=== PATIENT | female | born 1960 | race Caucasian/White ===

== ENCOUNTER 2017-09-26 16:59 | Inpatient (IN) ==
[2017-09-26] MEDS ORDERED: *HR* HYDROcodone/Acet 5/325 mg TABLET PO PRN (18:30)
[2017-09-26] MEDS ORDERED: *HR* Morphine 2 MG/ML SYRINGE IVP PRN (18:32)
[2017-09-26] MEDS ORDERED: Ondansetron 4 MG/2 ML VIAL IVP PRN (18:32)
[2017-09-26] MEDS ORDERED: Naloxone 0.4 MG/ML INJ IVP PRN (18:32)
[2017-09-26] MEDS ORDERED: Acetaminophen 325 MG TABLET PO PRN (18:32)
[2017-09-26] MEDS ORDERED: MOM Conc 10 ML UD.LIQ PO PRN (18:32)
[2017-09-26] MEDS ORDERED: Pantoprazole 80 MG in Water for inj. (sterile) 10 ML IVP ONE (18:36)
--- NOTE | 2017-09-26 18:41 | Internal Med History&Physical ---
Date of Encounter: 09/26/17 Time of Encounter: 18:39 Assessment and Plan (1) Anemia Current visit: Yes Status: Acute - Hgb dropped from 14.5 to 11.0. - symptoms consistent with acute GI bleeding. Qualifiers: Anemia type: unspecified type Qualified Code(s): D64.9 - Anemia, unspecified (2) Acute GI bleeding Current visit: Yes Status: Acute - most likely upper GI bleeding, - protonix 80 mg loading + gtt. - continue asa and Plavix. - GI consult. (3) CAD (coronary artery disease) Current visit: No Status: Chronic - Had stent placed in 09/2013. - No chest pain, continue home meds. Qualifiers: Coronary Disease-Associated Artery/Lesion type: [place] artery [place] vs. transplanted heart: [place] heart Associated angina: angina presence unspecified Qualified Code(s): I25.10 - Atherosclerotic heart disease of [place] coronary artery without angina pectoris (4) HTN (hypertension) Current visit: No Status: Chronic - BP stable and continue current treatment. Qualifiers: Hypertension type: essential hypertension Qualified Code(s): I10 - Essential (primary) hypertension (5) Hyperlipidemia Current visit: No Status: Chronic - continue current treatment. Qualifiers: Hyperlipidemia type: pure hypercholesterolemia Qualified Code(s): E78.00 - Pure hypercholesterolemia, unspecified; E78.0 - Pure hypercholesterolemia (6) GERD (gastroesophageal reflux disease) Current visit: No Status: Chronic - on PPI. Qualifiers: Esophagitis presence: esophagitis presence not specified Qualified Code(s) : K21.9 - Gastro-esophageal reflux disease without esophagitis Internal Medicine - H&P: HPI Admitted From: Emergency Dept Plans for Post Hospital Care: Home History of present illness: Ms. Gil is a 57 year old female who reports that she started with some nausea and vomiting about 1 AM. She relates she has thrown up 3 times without having had anything to eat and it has been voluminous, liquid and black. She has not seen read, clots or maroon. She states she then started having soft bowel movements. The first stool was normal and that she has passed 3 or 4 black stools with the last one being about 45 minutes prior to arrival. She states she has had an abdominal cramp before passage of stool but no other abdominal pain. She has had increasing weakness over the course of the day. She has had a couple sweats but denies that she has been feeling presyncopal. She denies chest pain, palpitations, fevers or chills. She denies any increased shortness of breath and states she has COPD. She denies any type of cough. She denies urinary complaints. She denies use of non-steroidals beyond a baby aspirin a day nor use of alcohol. She is on Plavix daily. She states she did have a GI bleed with hemoglobin of 10 about a year ago. She denies having any follow-up endoscopy. Her vital signs were stable at the [place] ED. Labs revealed anemia with hemoglobin 11.0. He will she will be admitted to inpatient service for further management. Past Med Surg Social Fam HX - Past Medical History Medical history: arthritis, COPD, GERD, GI bleed, hyperlipidemia, hypertension, myocardial infarction Psychiatric history: no psych history - Past Surgical History Surgical History: angioplasty/stent, herniorrhaphy - Social History Smoking Status: Current every day smoker Packs per day: 1 Smokeless Tobacco Status: No Alcohol use: none Drug use: none - Family History Mother Age: 82 Family Member Ethnicity: Non- Living Status: Still Living Hx Family Cardiac Disorders: No Hx Family Respiratory Disorders: No Hx Family Cancer: No Hx Family GI Disorders: Yes Hx Family Genitourinary Disorders: No Hx Family Endocrine Disorder: Yes Hx Family Musculoskeletal Disorders: Yes Hx Family Neuromuscular Disorders: No Hx Family Neurologic Disorders: No Hx Family HEENT Disorders: No Hx Family Autoimmune Disorders: No Hx Family Reproductive Disorders: No Hx Family Psychosocial Disorders: No Hx Family Medical Disorders: No Internal Medicine - H&P: Meds Aspirin Enteric Coated [Aspirin EC] 81 mg PO DAILY 08/12/15 [History] Atorvastatin [Lipitor] 80 mg PO HS 08/12/15 [History] Clopidogrel [Plavix] 75 mg PO DAILY 08/12/15 [History] Hydrocodone/Acetaminophen [[place] 5-325 Tablet] 1 tab PO Q12H PRN 08/12/15 [ History] Isosorbide DInitrate [Isosorbide Dinitrate] 60 mg PO DAILY 08/12/15 [History] Losartan [Cozaar] 100 mg PO DAILY 08/12/15 [History] Metoprolol [Lopressor] 37.5 mg PO BID 08/12/15 [History] Cholecalciferol (D-3) [Vitamin D] 1,000 unit PO DAILY 09/01/16 [History] Methotrexate Sodium/PF [Methotrexate 25 mg/ml Vial] 17.5 mg PO QWEEK 09/01/16 [ History] Folic Acid 1 mg PO DAILY 09/26/17 [History] Hydroxychloroquine [Plaquenuil] 300 mg PO DAILY 09/26/17 [History] Levothyroxine [Synthroid] 25 mcg PO 0630 09/26/17 [History] Omeprazole [PriLOSEC] 20 mg PO QAM 09/26/17 [History] 3 Allergy/AdvReac Type Severity Reaction Status Date / Time codeine Allergy Hives Verified 09/01/16 14:30 All Systems PM: A 10-system review of systems was performed and is negative for pertinent findings except as documented above in the HPI. Review of systems: REVIEW OF SYSTEMS: CONSTITUTIONAL: No weight loss, fever, chills, weakness or fatigue. HEENT: Eyes: No visual loss, blurred vision, double vision or yellow sclerae. Ears, Nose, Throat: No hearing loss, sneezing, congestion, runny nose or sore throat. SKIN: No rash or itching. CARDIOVASCULAR: No chest pain, chest pressure or chest discomfort. No palpitations or edema. RESPIRATORY: No shortness of breath, cough or sputum. GASTROINTESTINAL: see HPI. GENITOURINARY: No dysuria, urgency, or frequency. NEUROLOGICAL: No headache, dizziness, syncope, paralysis, ataxia, numbness or tingling in the extremities. No change in bowel or bladder control. MUSCULOSKELETAL: No muscle, back pain, joint pain or stiffness. HEMATOLOGIC: No anemia, bleeding or bruising. LYMPHATICS: No enlarged nodes. No history of splenectomy. PSYCHIATRIC: No history of depression or anxiety. ENDOCRINOLOGIC: No reports of sweating, cold or heat intolerance. No polyuria or polydipsia. - Constitutional Exam: PHYSICAL EXAMINATION: GENERAL APPEARANCE: The patient is alert, oriented and in no acute distress. HEENT: Head is normocephalic. The sinuses are nontender. Pupils are equal and reactive. The nares are patent. Oropharynx clear without lesions. NECK: Supple without lymphadenopathy. HEART: Regular rate and rhythm. LUNGS: No crackles or wheezes are heard. ABDOMEN: Soft, nontender, nondistended with good bowel sounds heard. Inguinal area is normal. EXTREMITIES: Without cyanosis, clubbing or edema. NEUROLOGICAL: Gross nonfocal. SKIN: Warm and dry without any rash.
[2017-09-26] MEDS: Pantoprazole 80 MG in 0.9 % Sodium Chloride 250 ML IVC SCH (19:56)
[2017-09-26] MEDS: 0.9 % Sodium Chloride 1,000 ML IVC SCH (19:59)
[2017-09-26] MEDS ORDERED: Polyethylene Glycol 3350 255 GM POWDER PO ONE (22:45)
[2017-09-27] MEDS: Pantoprazole 80 MG in 0.9 % Sodium Chloride 250 ML IVC SCH (05:24)
[2017-09-27] MEDS: Levothyroxine 25 MCG TABLET PO SCH (06:13)
[2017-09-27 07:59] LABS: Hemoglobin 9.9 g/dL (11.5-15.4); Mean Corpuscular HGB Conc 31.9 g/dL (31.6-35.5); Mean Corpuscular Hemoglobin 31.5 pg (28.0-33.3); Mean Corpuscular Volume 98.7 fL (83.0-100.0); Mean Platelet Volume 9.8 fL (9.4-12.4); Platelet Count 249 K/mcL (140-400); Red Blood Count 3.14 M/mcL (3.82-4.97); Red Cell Distribution Width 14.4 % (11.5-14.5)
[2017-09-27 08:07] LABS: Alanine Aminotransferase 12 Units/L (7-52); Albumin 3.4 g/dL (3.5-5.7); Albumin/Globulin Ratio 1.8 (1.1-2.2); Alkaline Phosphatase 46 Units/L (34-104); Aspartate Amino Transferase 12 Units/L (13-39); BUN/Creatinine Ratio 52 (6-26); Bilirubin,Total 0.3 mg/dL (0.3-1.0); Blood Urea Nitrogen 29 mg/dL (6-20); Calcium 8.6 mg/dL (8.6-10.3); Carbon Dioxide 24 mEq/L (23-29); Chloride 119 mEq/L (98-107); Globulin 1.9 g/dL (2.4-3.5); Glucose 88 mg/dL (70-105); Osmolality,Calculated 303 (280-300); Potassium 3.7 mEq/L (3.5-5.1); Sodium 144 mEq/L (136-145); Total Protein 5.3 g/dL (6.4-8.9); eGFR For African Americans > 60 (> 60); eGFR For Non-African Americans > 60 (> 60)
[2017-09-27] MEDS ORDERED: *HR* Midazolam HCl 5 MG/5 ML VIAL IVP ONE ×2 (08:07→11:31)
[2017-09-27] MEDS ORDERED: *HR* FentaNYL (PF) 100 MCG/2 ML VIAL ONE (08:07)
[2017-09-27] MEDS ORDERED: 0.9 % Sodium Chloride 500 ML IVC SCH (08:30)
[2017-09-27] MEDS: Cholecalciferol (D-3) 1,000 UNIT TABLET PO SCH (09:15)
[2017-09-27] MEDS: Aspirin Enteric Coated 81 MG Tablet PO SCH (09:15)
[2017-09-27] MEDS: Folic Acid 1 MG TABLET PO SCH (09:15)
[2017-09-27] MEDS ORDERED: *HR* FentaNYL (PF) 100 MCG/2 ML VIAL IVP ONE (11:31)
[2017-09-27] MEDS ORDERED: Tetracaine/Benzocaine/Butamben 200MG/SPRAY (100SPY/BOT) MM ONE (11:31)
[2017-09-27] MEDS ORDERED: Simethicone 40 MG/0.6 ML MLS IR ONE (11:31)
--- NOTE | 2017-09-27 11:31 | Pre-Sedation Evaluation ---
Pre-sedation evaluation - Pre-sedation checklist Date of procedure: 09/27/17 Recent Vitals: Last Vital Signs Temp 97.9 F 09/27/17 10:18 Pulse 71 09/27/17 10:18 Resp 14 09/27/17 10:18 BP 101/66 09/27/17 10:18 Pulse Ox 97 09/27/17 10:18 ASA Classification *see protocol: CLASS II-Mild systemic disease Plan of Care: Pt appropriate candidate for procedure/moderate/conscious sedation , Risks/benefits of procedure/sedation discussed w/ patient/family
--- NOTE | 2017-09-27 11:47 | Gastroenterology Consult Note ---
Date of Encounter: 09/27/17 Time of Encounter: 10:00 - Assessment and plan (1) Coffee ground emesis Current Visit: Yes Status: Acute Assessment and plan: Patient with coffee-ground emesis and with anemia. We will do an EGD to rule out upper GI causes for her GI bleeding (2) Anemia Current Visit: Yes Status: Acute Assessment and plan: Patient with anemia and it had coffee-ground emesis and also melena but looking back patient also had anemia in 2016 with a hemoglobin down to the mid 10 range. We will recommend colonoscopy as she never had a colonoscopy done before. Qualifiers: Anemia type: iron deficiency Iron deficiency anemia type: unspecified iron deficiency Qualified Code(s): D50.9 - Iron deficiency anemia, unspecified - Time Spent With Patient Total time spent is greater than 50% in coordination of care (as documented) at patient's floor/unit and/or counseling patient: GI History of Present Illness - Data of Consult Requesting Physician: Kasia Cline MD - Consult Narrative Reason for consult: Anemia and melena and coffee-ground emesis History of present illness: Ms. Gil is a 57 year old female admitted because of anemia/melena with coffee -ground emesis she started with some nausea and vomiting about 1 AM, vomitus was coffee ground in color. She states she then started having soft bowel movements and was feeling abdominal cramping too. The first stool was normal and that she has passed 3 or 4 black stools with the last one being about 45 minutes prior to arrival. She states she has had an abdominal cramp before passage of stool but no other abdominal pain. Since in the hospital no abdominal pain and she is not passing any more black stool. Hemoglobin on admission was 10 , in July hemoglobin was 14 but last year hemoglobin was also down to 10.8 denies any history of colonoscopy. Past Med Surg Social Fam HX - Past Medical History Medical history: arthritis, COPD, GERD, GI bleed, hyperlipidemia, hypertension, myocardial infarction Psychiatric history: no psych history - Past Surgical History Surgical History: angioplasty/stent, herniorrhaphy - Social History Smoking Status: Current every day smoker Packs per day: 1 Smokeless Tobacco Status: No Alcohol use: none Drug use: none - Family History Mother Age: 82 Family Member Ethnicity: Non- Living Status: Still Living Hx Family Cardiac Disorders: No Hx Family Respiratory Disorders: No Hx Family Cancer: No Hx Family GI Disorders: Yes Hx Family Genitourinary Disorders: No Hx Family Endocrine Disorder: Yes Hx Family Musculoskeletal Disorders: Yes Hx Family Neuromuscular Disorders: No Hx Family Neurologic Disorders: No Hx Family HEENT Disorders: No Hx Family Autoimmune Disorders: No Hx Family Reproductive Disorders: No Hx Family Psychosocial Disorders: No Hx Family Medical Disorders: No Review of Systems: GI: as per [place] GENERAL: denies fever, has some chills EYES: denies yellow discoloration ENT: denies pain with swallowing or difficulty swallowing CARDIO: denies chest pain, palpitations RESP: No Shortness of breath with exertion : denies change in color of urine NEURO: denies any weakness HEME: Denies any bruising MS: denies joint pain, joint swelling or back pain. DERM: denies rash or itching PSYCH: Denies history of anxiety or depression - Constitutional Vitals: Temp Pulse Resp BP Pulse Ox 97.9 F 71 14 101/66 97 09/27/17 10:18 09/27/17 10:18 09/27/17 10:18 09/27/17 10:18 09/27/17 10:18 General appearance: Present: A&O X 3 - Head Head exam: Present: atraumatic - Eye Eye exam: Present: sclera anicteric - Neck Neck exam general surgery: Present: supple - Respiratory Additional comments: Bilateral good air entry no crackles or wheezing - Cardiovascular Additional comments: S1 and S2 rhythm is regular - GI/Abdominal Additional comments: Right upper abdomen large scar of previous abdominal surgery. No obvious tenderness. No abdominal distention. - Rectal Rectal exam: Present: deferred - Extremities Exam Extremities exam: Present: normal inspection, warm - Neurological Exam Neurological exam: Present: oriented X3 Additional comments: No obvious focal deficit - Skin Skin exam: Present: dry, warm Results - Labs CBC & Chem 7: 09/27/17 07:06 09/27/17 07:06 Labs: Last Result Calcium 8.6 mg/dL (8.6-10.3) 09/27/17 07:06 Entire Visit Hgb 9.9 g/dL (11.5-15.4) L 09/27/17 07:06 Hct 31.0 % (35.3-44.9) L 09/27/17 07:06 Total Bilirubin 0.3 mg/dL (0.3-1.0) 09/27/17 07:06 AST 12 Units/L (13-39) L 09/27/17 07:06 ALT 12 Units/L (7-52) 09/27/17 07:06 Consult Discharge Plan - Plan Referrals: Marilin Deal, CHANELLE [Primary Care Provider] -
[2017-09-27 19:25] LABS: Hematocrit 27.9 % (35.3-44.9); Hemoglobin 8.9 g/dL (11.5-15.4)
--- NOTE | 2017-09-27 20:56 | Internal Med Progress Note ---
Date of Encounter: 09/27/17 Time of Encounter: 15:54 - Assessment and plan (1) Upper GI bleed Current Visit: Yes Status: Acute Assessment and plan: Continue Protonix drip, supportive care, monitor vital signs, cycle H&H and transfuse as needed. (2) CAD (coronary artery disease) Current Visit: No Status: Chronic Assessment and plan: Currently on ASA/Plavix. May need to hold these. Qualifiers: Coronary Disease-Associated Artery/Lesion type: [place] artery [place] vs. transplanted heart: [place] heart Associated angina: angina presence unspecified Qualified Code(s): I25.10 - Atherosclerotic heart disease of [place] coronary artery without angina pectoris (3) HTN (hypertension) Current Visit: No Status: Chronic Assessment and plan: Currently normotensive Qualifiers: Hypertension type: essential hypertension Qualified Code(s): I10 - Essential (primary) hypertension (4) Hyperlipidemia Current Visit: No Status: Chronic Assessment and plan: Lipitor Qualifiers: Hyperlipidemia type: pure hypercholesterolemia Qualified Code(s): E78.00 - Pure hypercholesterolemia, unspecified; E78.0 - Pure hypercholesterolemia - Subjective Interval history: Patient recently returned from EGD. Doing well. Report pending. - Constitutional Vitals: Temp Pulse Resp BP Pulse Ox 97.5 F L 70 5 109/73 97 09/27/17 19:11 09/27/17 19:11 09/27/17 19:11 09/27/17 19:11 09/27/17 19:11 - Head Head exam: Present: atraumatic, normocephalic - Eye Eye exam: Present: PERRL, conjuntiva pink, sclera anicteric Pupils: Present: PERRL - Neck Neck exam general surgery: Present: supple, trachea midline. Absent: lymphadenopathy - Respiratory Respiratory exam: Present: CTAB. Absent: accessory muscle use, rales, rhonchi, wheezes - Cardiovascular Cardiovascular exam: Present: RRR, +S1, +S2. Absent: diastolic murmur, gallop, rubs, systolic murmur - GI/Abdominal GI/Abdominal exam: Present: normal bowel sounds, soft, no peritoneal signs. Absent: distended, tenderness - Extremities Exam Extremities exam: Present: warm, radial pulses palpable and symmetrical. Absent : calf tenderness, cyanotic, pedal edema - Neurological Exam Neurological exam: Present: CN II-XII intact, oriented X3, no focal deficits. Absent: pronater drift, facial droop, speech deficit - Skin Skin exam: Present: dry, intact Internal Medicine: Result - Labs CBC & Chem 7: 09/27/17 19:13 09/27/17 07:06 Labs: Short CBC 09/27/17 09/27/17 Range/Units 07:06 19:13 WBC 14.4 H (4.3-11.1) K/mcL Hgb 9.9 L 8.9 L (11.5-15.4) g/dL Hct 31.0 L 27.9 L (35.3-44.9) % Plt Count 249 (140-400) K/mcL BMP 09/27/17 07:06 Sodium 144 Potassium 3.7 Chloride 119 H Carbon Dioxide 24 BUN 29 H Creatinine 0.56 L Glucose 88 Calcium 8.6 Liver Function 09/27/17 Range/Units 07:06 Total Bilirubin 0.3 (0.3-1.0) mg/dL AST 12 L (13-39) Units/L ALT 12 (7-52) Units/L Alkaline Phosphatase 46 (34-104) Units/L Albumin 3.4 L (3.5-5.7) g/dL Consult Discharge Plan - Plan Referrals: Marilin Deal, CHANELLE [Primary Care Provider] -
[2017-09-27] MEDS: 0.9 % Sodium Chloride 1,000 ML IVC SCH (21:24)
[2017-09-28] MEDS: Pantoprazole 80 MG in 0.9 % Sodium Chloride 250 ML IVC SCH ×4 (01:30→21:55)
[2017-09-28 05:36] LABS: Basophils # 0.1 K/mcL (0.0-0.2); Basophils % 0.7 %; Eosinophils # 0.4 K/mcL (0.0-0.6); Eosinophils % 2.9 %; Hemoglobin 8.6 g/dL (11.5-15.4); Immature Granulocytes % 0.8 % (0-4); Lymphocytes # 2.7 K/mcL (0.6-4.6); Lymphocytes % 20.6 %; Mean Corpuscular HGB Conc 31.9 g/dL (31.6-35.5); Mean Corpuscular Hemoglobin 31.6 pg (28.0-33.3); Mean Corpuscular Volume 99.3 fL (83.0-100.0); Monocytes % 7.2 %; Neutrophils # 8.9 K/mcL (1.6-8.9); Platelet Count 239 K/mcL (140-400); Red Blood Count 2.72 M/mcL (3.82-4.97); Red Cell Distribution Width 14.2 % (11.5-14.5); Segmented Neutrophils % 67.8 %
[2017-09-28 05:53] LABS: BUN/Creatinine Ratio 25 (6-26); Blood Urea Nitrogen 15 mg/dL (6-20); Calcium 8.2 mg/dL (8.6-10.3); Carbon Dioxide 24 mEq/L (23-29); Chloride 114 mEq/L (98-107); Glucose 83 mg/dL (70-105); Osmolality,Calculated 296 (280-300); Sodium 143 mEq/L (136-145); eGFR For African Americans > 60 (> 60); eGFR For Non-African Americans > 60 (> 60)
[2017-09-28] MEDS: Levothyroxine 25 MCG TABLET PO SCH (06:05)
[2017-09-28] MEDS: Aspirin Enteric Coated 81 MG Tablet PO SCH (08:05)
[2017-09-28] MEDS: Folic Acid 1 MG TABLET PO SCH (08:05)
[2017-09-28] MEDS: Cholecalciferol (D-3) 1,000 UNIT TABLET PO SCH (08:06)
[2017-09-28] MEDS: *HR* Methotrexate 2.5 MG TABLET PO SCH ×2 (08:08→12:34)
--- NOTE | 2017-09-28 10:56 | Internal Med Progress Note ---
Date of Encounter: 09/28/17 Time of Encounter: 10:53 - Assessment and plan (1) Upper GI bleed Current Visit: Yes Status: Acute Assessment and plan: EGD done 09/27, No signs of active bleed currently. Continue Protonix drip for now Monitor BP, recheck H&H at 3 pm today. Transfuse if needed. Appreciate GI recommendations. (2) CAD (coronary artery disease) Current Visit: No Status: Chronic Assessment and plan: Currently on ASA/Plavix. May need to hold these. Qualifiers: Coronary Disease-Associated Artery/Lesion type: [place] artery [place] vs. transplanted heart: [place] heart Associated angina: angina presence unspecified Qualified Code(s): I25.10 - Atherosclerotic heart disease of [place] coronary artery without angina pectoris (3) HTN (hypertension) Current Visit: No Status: Chronic Assessment and plan: Currently normotensive Qualifiers: Hypertension type: essential hypertension Qualified Code(s): I10 - Essential (primary) hypertension (4) Hyperlipidemia Current Visit: No Status: Chronic Assessment and plan: Lipitor Qualifiers: Hyperlipidemia type: pure hypercholesterolemia Qualified Code(s): E78.00 - Pure hypercholesterolemia, unspecified; E78.0 - Pure hypercholesterolemia - Subjective Interval history: Patient had EGD 09/27, so far doing well. Denies chest pain, SOB, n/v, diarrhea , melana, hematochezia. - Constitutional Vitals: Temp Pulse Resp BP Pulse Ox 97.6 F 75 14 94/58 96 09/28/17 10:13 09/28/17 10:13 09/28/17 10:13 09/28/17 10:13 09/28/17 10:13 - Head Head exam: Present: atraumatic, normocephalic - Eye Eye exam: Present: PERRL, conjuntiva pink, sclera anicteric Pupils: Present: PERRL - Neck Neck exam general surgery: Present: supple, trachea midline. Absent: lymphadenopathy - Respiratory Respiratory exam: Present: CTAB. Absent: accessory muscle use, rales, rhonchi, wheezes - Cardiovascular Cardiovascular exam: Present: RRR, +S1, +S2. Absent: diastolic murmur, gallop, rubs, systolic murmur - GI/Abdominal GI/Abdominal exam: Present: normal bowel sounds, soft, no peritoneal signs. Absent: distended, tenderness - Extremities Exam Extremities exam: Present: warm, radial pulses palpable and symmetrical. Absent : calf tenderness, cyanotic, pedal edema - Neurological Exam Neurological exam: Present: CN II-XII intact, oriented X3, no focal deficits. Absent: pronater drift, facial droop, speech deficit - Skin Skin exam: Present: dry, intact Internal Medicine: Result - Labs CBC & Chem 7: 09/28/17 04:37 09/28/17 04:37 Labs: Short CBC 09/27/17 09/28/17 Range/Units 19:13 04:37 WBC 13.2 H (4.3-11.1) K/mcL Hgb 8.9 L 8.6 L (11.5-15.4) g/dL Hct 27.9 L 27.0 L (35.3-44.9) % Plt Count 239 (140-400) K/mcL Neutrophils # 8.9 (1.6-8.9) K/mcL BMP 09/28/17 04:37 Sodium 143 Potassium 4.0 Chloride 114 H Carbon Dioxide 24 BUN 15 Creatinine 0.60 Glucose 83 Calcium 8.2 L Consult Discharge Plan - Plan Referrals: Marilin Deal, [facility] [employer] [Primary Care Provider] -
[2017-09-28] MEDS ORDERED: *HR* Methotrexate 2.5 MG TABLET PO SCH (12:32)
[2017-09-28 15:25] LABS: Hematocrit 23.6 % (35.3-44.9); Hemoglobin 7.5 g/dL (11.5-15.4)
[2017-09-29] MEDS: Levothyroxine 25 MCG TABLET PO SCH (05:20)
[2017-09-29 05:30] LABS: BUN/Creatinine Ratio 21 (6-26); Blood Urea Nitrogen 13 mg/dL (6-20); Calcium 8.5 mg/dL (8.6-10.3); Carbon Dioxide 27 mEq/L (23-29); Chloride 112 mEq/L (98-107); Glucose 96 mg/dL (70-105); Osmolality,Calculated 294 (280-300); Potassium 3.7 mEq/L (3.5-5.1); Sodium 142 mEq/L (136-145); eGFR For African Americans > 60 (> 60); eGFR For Non-African Americans > 60 (> 60)
[2017-09-29 05:39] LABS: Basophils # 0.1 K/mcL (0.0-0.2); Basophils % 0.6 %; Eosinophils # 0.4 K/mcL (0.0-0.6); Eosinophils % 3.3 %; Hematocrit 25.7 % (35.3-44.9); Hemoglobin 8.1 g/dL (11.5-15.4); Immature Granulocytes % 0.5 % (0-4); Lymphocytes # 2.8 K/mcL (0.6-4.6); Lymphocytes % 25.7 %; Mean Corpuscular HGB Conc 31.5 g/dL (31.6-35.5); Mean Corpuscular Hemoglobin 31.4 pg (28.0-33.3); Mean Corpuscular Volume 99.6 fL (83.0-100.0); Mean Platelet Volume 10.1 fL (9.4-12.4); Monocytes # 0.9 K/mcL (0.0-1.3); Monocytes % 8.4 %; Neutrophils # 6.8 K/mcL (1.6-8.9); Nucleated Red Blood Cells 0.2 /100 WBC (0); Platelet Count 238 K/mcL (140-400); Red Blood Count 2.58 M/mcL (3.82-4.97); Red Cell Distribution Width 13.9 % (11.5-14.5); Segmented Neutrophils % 61.5 %
[2017-09-29] MEDS: Pantoprazole 80 MG in 0.9 % Sodium Chloride 250 ML IVC SCH (07:32)
[2017-09-29] MEDS: Folic Acid 1 MG TABLET PO SCH (07:33)
[2017-09-29] MEDS: Aspirin Enteric Coated 81 MG Tablet PO SCH (07:33)
[2017-09-29] MEDS: Cholecalciferol (D-3) 1,000 UNIT TABLET PO SCH (07:35)
[2017-09-29 11:13] VITALS: BP 108/67
--- NOTE | 2017-09-29 12:10 | Discharge Summary ---
Date of Encounter: 09/29/17 Time of Encounter: 12:19 - Discharge Diagnosis (1) Upper GI bleed Priority: Primary Status: Acute (2) CAD (coronary artery disease) Priority: Secondary Status: Chronic Qualifiers: Coronary Disease-Associated Artery/Lesion type: [place] artery [place] vs. transplanted heart: [place] heart Associated angina: angina presence unspecified Qualified Code(s): I25.10 - Atherosclerotic heart disease of [place] coronary artery without angina pectoris (3) HTN (hypertension) Priority: Secondary Status: Chronic Qualifiers: Hypertension type: essential hypertension Qualified Code(s): I10 - Essential (primary) hypertension (4) Hyperlipidemia Priority: Secondary Status: Chronic Qualifiers: Hyperlipidemia type: pure hypercholesterolemia Qualified Code(s): E78.00 - Pure hypercholesterolemia, unspecified; E78.0 - Pure hypercholesterolemia - Discharge Medications Home Medications: Aspirin Enteric Coated [Aspirin EC] 81 mg PO DAILY 08/12/15 [History] Atorvastatin [Lipitor] 80 mg PO HS 08/12/15 [History] Clopidogrel [Plavix] 75 mg PO DAILY 08/12/15 [History] Hydrocodone/Acetaminophen [[place] 5-325 Tablet] 1 tab PO Q12H PRN 08/12/15 [ History] Losartan [Cozaar] 100 mg PO DAILY 08/12/15 [History] Metoprolol [Lopressor] 12.5 mg PO BID 08/12/15 [History] Cholecalciferol (D-3) [Vitamin D] 1,000 unit PO DAILY 09/01/16 [History] Folic Acid 1 mg PO DAILY 09/26/17 [History] Hydroxychloroquine [Plaquenuil] 300 mg PO DAILY 09/26/17 [History] Levothyroxine [Synthroid] 25 mcg PO DAILY 09/26/17 [History] Methotrexate [Otrexup] 17.5 mg PO QWEEK 09/27/17 [History] Isosorbide MONOnitrate (24 HR) [Imdur] 60 mg PO DAILY 09/29/17 [History] Omeprazole [PriLOSEC] 40 mg PO DAILY #30 cap 09/29/17 [Rx] Allergies/Adverse Reactions: 3 Allergy/AdvReac Type Severity Reaction Status Date / Time codeine Allergy Hives Verified 09/01/16 14:30 Date of admission: 09/26/17 18:33 Primary care physician: Marilin Deal CNP Consults: 09/26/17 18:38 Consult to Gastroenterology [CONS] Routine Consulting Provider: Ishaan Kline Reason for Consult: GI bleeding Call Completed: No Discharging clinician: Kasia Cline - Patient Status Disposition: Home, Self-Care Condition: Fair Functional capacity at discharge: independent ambulation Overall status at discharge: patient is progressing back to baseline - Discharge Instructions Follow Up With: Marilin Deal CNP [Primary Care Provider] - - Diet and Activity Activity: increase activity as tolerated Diet: advance to your usual diet Hospital course: Ms. Gil is a 57 year old female who presented due to nausea with vomiting described as liquid and black. She passed 3 black stools and complained of abdominal cramps and dizziness. She denies use of non-steroidals or alcohol use beyond a baby aspirin a day nor use of alcohol. She is on ASA/Plavix daily. She states she did have a GI bleed with hemoglobin of 10 about a year ago. Her vital signs were stable at the [place] ED. Labs revealed anemia with hemoglobin 11.0 adn her baseline is usually 14. She was admitted for anemia due to acute GIB. She was monitored with serial H&H as well as with vital signs. She was started on a Protonix drip and GI was consulted. Due to significant coronary artery disease, ASA and Plavix were continued. GI was consulted. EGD was done, no urgent intervention was needed. Patient did drop to 7.5 but improved back to 8.1 and remained asymptomatic and hemodynamically stable. She was discharged home in stable condition. She will be discharged with increased dose of omeprazole now 40 mg daily, and iron supplement tabs. - Time Spent with Patient Total time spent providing and/or coordinating discharge services: - Constitutional Vitals: Temp Pulse Resp BP Pulse Ox 97.9 F 58 16 108/67 97 09/29/17 11:12 09/29/17 11:12 09/29/17 11:12 09/29/17 11:12 09/29/17 11:12 - Head Head exam: Present: atraumatic, normocephalic - Eye Eye exam: Present: PERRL, conjuntiva pink, sclera anicteric Pupils: Present: PERRL - Neck Neck exam general surgery: Present: supple, trachea midline. Absent: lymphadenopathy - Respiratory Respiratory exam: Present: CTAB. Absent: accessory muscle use, rales, rhonchi, wheezes - Cardiovascular Cardiovascular exam: Present: RRR, +S1, +S2. Absent: diastolic murmur, gallop, rubs, systolic murmur - GI/Abdominal GI/Abdominal exam: Present: normal bowel sounds, soft, no peritoneal signs. Absent: distended, tenderness - Extremities Exam Extremities exam: Present: warm, radial pulses palpable and symmetrical. Absent : calf tenderness, cyanotic, pedal edema - Neurological Exam Neurological exam: Present: CN II-XII intact, oriented X3, no focal deficits. Absent: pronater drift, facial droop, speech deficit - Skin Skin exam: Present: dry, intact
== END 2017-09-29 13:10 | disposition home or self-care (01) | DRG 379 ==
LOC: 3ANU
PROVIDERS: ADMIT Internal Medicine Nephrology; ATTEND Student in an Organized Health Care Education/Training Program
PROC: ENDOEBX (2017-09-27 09:30)
PROC: ENDOCBX (2017-09-27 09:30)

== ENCOUNTER 2018-06-29 09:47 | Inpatient (IN) ==
[2018-06-29] MEDS ORDERED: Ondansetron 4 MG/2 ML VIAL IVP ONE (09:54)
[2018-06-29] MEDS ORDERED: Pantoprazole 80 MG in 0.9 % Sodium Chloride 50 ML IVPB ONE (09:54)
[2018-06-29] MEDS ORDERED: 0.9 % Sodium Chloride 1,000 ML IVC ONE (09:54)
[2018-06-29 10:30] LABS: Basophils # 0.1 K/mcL (0.0-0.2); Basophils % 0.6 %; Eosinophils # 0.3 K/mcL (0.0-0.6); Eosinophils % 1.4 %; Hematocrit 30.5 % (35.3-44.9); Hemoglobin 9.6 g/dL (11.5-15.4); Immature Granulocytes % 0.9 % (0-4); Lymphocytes # 2.5 K/mcL (0.6-4.6); Lymphocytes % 10.9 %; Mean Corpuscular HGB Conc 31.5 g/dL (31.6-35.5); Mean Corpuscular Hemoglobin 29.4 pg (28.0-33.3); Mean Corpuscular Volume 93.3 fL (83.0-100.0); Mean Platelet Volume 9.4 fL (9.4-12.4); Monocytes # 1.1 K/mcL (0.0-1.3); Monocytes % 4.5 %; Neutrophils # 19.1 K/mcL (1.6-8.9); Platelet Count 461 K/mcL (140-400); Red Blood Count 3.27 M/mcL (3.82-4.97); Red Cell Distribution Width 16.4 % (11.5-14.5); Segmented Neutrophils % 81.7 %
[2018-06-29 10:35] LABS: Prothrombin Time 11.2 Seconds (9.4-12.1)
[2018-06-29 10:38] LABS: Activated Partial Thrombo Time 25.1 Seconds (26.0-36.0)
[2018-06-29 10:50] LABS: BUN/Creatinine Ratio 24 (6-26); Blood Urea Nitrogen 23 mg/dL (8-23); Carbon Dioxide 25 mEq/L (23-29); Chloride 111 mEq/L (98-107); Glucose 177 mg/dL (70-105); Osmolality,Calculated 298 (280-300); Potassium 4.5 mEq/L (3.5-5.1); Sodium 140 mEq/L (136-145); eGFR For Non-African Americans 59 (> 60)
[2018-06-29 10:51] LABS: Troponin I < 0.03 ng/mL (< 0.04)
[2018-06-29] MEDS: Pantoprazole 40 MG in 0.9 % Sodium Chloride Mini Bag 100 ML IVC SCH ×3 (11:00→22:00)
--- NOTE | 2018-06-29 11:04 | Emergency Department Note ---
Disposition Clinical Impression: Upper GI bleed Anemia Qualifiers: Anemia type: unspecified type Qualified Code(s): D64.9 - Anemia, unspecified Hematemesis Qualifiers: Nausea presence: with nausea Qualified Code(s): K92.0 - Hematemesis Disposition: Admitted As Inpatient Condition: Fair Referrals: Marilin Deal, ASSOCIATE ACCOUNT DIRECTOR [Primary Care Provider] - Forms: ED Satisfaction Letter Time of Disposition: 11:54 GI Bleed HPI - General Chief complaint: ED GI Bleed Stated complaint: Vomiting Blood Time Seen by Provider: 06/29/18 09:51 Source: patient Mode of arrival: ambulatory Limitations: no limitations Nursing Notes Reviewed: Yes Vital Signs Reviewed: Yes - History of Present Illness HPI Narrative: Patient presents emergency room by personal vehicle for evaluation of several episodes of hematemesis at home. Patient has had this happen several times in the past. She was evaluated and admitted a while back for gastric ulcer that was bleeding that required EGD but no other medical intervention. She denies any trauma or injury. She has had bronchitis for the last several days and finished steroids one week ago and antibiotics. She denies any other symptoms or complaints. 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 Denies: epistaxis, headaches, loss of appetite - Related Data Home Medications Medication Instructions Recorded Confirmed Aspirin Enteric Coated [Aspirin EC] 81 mg PO DAILY 08/12/15 09/27/17 Atorvastatin [Lipitor] 80 mg PO HS 08/12/15 09/27/17 Clopidogrel [Plavix] 75 mg PO DAILY 08/12/15 09/27/17 Hydrocodone/Acetaminophen [[place] 1 tab PO Q12H PRN 08/12/15 09/27/17 5-325 Tablet] Losartan [Cozaar] 100 mg PO DAILY 08/12/15 09/27/17 Metoprolol [Lopressor] 12.5 mg PO BID 08/12/15 09/27/17 Cholecalciferol (D-3) [Vitamin D] 1,000 unit PO DAILY 09/01/16 09/27/17 Folic Acid 1 mg PO DAILY 09/26/17 09/27/17 Hydroxychloroquine [Plaquenuil] 300 mg PO DAILY 09/26/17 09/27/17 Levothyroxine [Synthroid] 25 mcg PO DAILY 09/26/17 09/27/17 Methotrexate [Otrexup] 17.5 mg PO QWEEK 09/27/17 09/27/17 Isosorbide MONOnitrate (24 HR) 60 mg PO DAILY 09/29/17 09/29/17 [Imdur] Previous Rx's Medication Instructions Recorded Ferrous Sulfate 325 mg PO DAILY #30 tablet 09/29/17 Omeprazole [PriLOSEC] 40 mg PO DAILY #30 cap 09/29/17 Allergies Allergy/AdvReac Type Severity Reaction Status Date / Time codeine Allergy Hives Verified 06/29/18 09:59 lisinopril AdvReac Cough Verified 06/29/18 09:59 All systems ED: reviewed and negative except as stated. Review of Systems: As Per HPI Constitutional: Denies: fever, chills, weakness Cardiovascular: Denies: chest pain, palpitations, dyspnea on exertion, orthopnea Respiratory: Denies: cough, dyspnea, wheezes Gastrointestinal: Reports: abdominal pain, nausea, vomiting, hematemesis. Denies: diarrhea, constipation, melena, hematochezia Genitourinary: Denies: urgency, dysuria, frequency Musculoskeletal: Denies: back pain, neck pain Integumentary: Denies: rash Past Medical History - Past Medical History Attestation: Yes The following information was validated with the patient. Source: patient Medical history: Reports: arthritis, COPD, GERD, GI bleed, hyperlipidemia, hypertension, myocardial infarction Surgical history: Reports: angioplasty/stent, herniorrhaphy Psychiatric history: Reports: no psych history - Social History Smoking Status: Current every day smoker Smokeless Tobacco Status: No Alcohol use: Reports: none Drug use: Reports: none Physical Exam - General Limitations: no limitations General appearance: alert - Head Head exam: atraumatic, normocephalic, normal inspection - Eye Eye exam: Present: normal appearance, PERRL, EOMI. Absent: periorbital swelling , periorbital tenderness - ENT ENT exam: normal exam, normal oropharynx, mucous membranes moist - Neck Neck exam: Present: normal inspection, full ROM, trachea midline. Absent: tenderness - Chest Chest inspection: Present: normal inspection, symmetric chest wall rise - Respiratory Respiratory exam: Present: normal lung sounds bilaterally - Cardiovascular Cardiovascular exam: Present: regular rate, normal rhythm, normal heart sounds - Abdominal Exam Abdominal exam: Present: soft, Non-Tender, normal bowel sounds. Absent: tenderness, distention, guarding, rebound, rigidity, Clinton's sign, Rovsing's sign, tenderness at McBurney's Point - Extremities Exam Extremities exam: Present: normal inspection, full ROM. Absent: tenderness - Back Exam Back exam: Present: normal inspection, full ROM. Absent: tenderness - Neurological Exam Neurological exam: Present: alert, oriented X3, CN II-XII intact, normal gait - Skin Skin exam: Present: warm, dry, intact, normal color Course Course Narrative: Patient seen and examined some arrival. See history of present illness. Vital signs are reviewed and hypotension was noted on initial triage with normal heart rate. Patient had several episodes of gross hematemesis at home prior to coming to the emergency room. She has a history of hematemesis secondary to gastric ulcers and bleeding. Patient is on aspirin and Plavix at home secondary to cardiac related issues. She is currently denying any chest pain shortness of breath headache vision changes nausea vomiting or diarrhea prior to the events here this morning. There has been no food in the emesis but mainly blood. Denies any other symptoms or complaints. No new medications. She was on steroids and antibiotic within the last week for bronchitis. Vital signs will be addressed with fluid resuscitation. 2 large-bore IVs were placed and screen was ordered CBC chemistry labs including troponin were added on. Chest x-ray and EKG will be collected as well. Patient will require admission most likely after initial intervention treatment have been established. Protonix bolus as well as a Protonix drip abdomen ordered. Consultation with gastroenterology/endoscopist will be completed as well. No other acute issues at this time. - Reevaluation(s) Reevaluation #1: Patient's hemoglobin is dropped to 9.6 from 14.1 less than one month ago. She has not had any other episodes of emesis here in the emergency room. Patient has been discussed with the on-call endoscopist Dr. Carly Nation. Recommended continuation of care and admission. Repeat hemoglobin has been ordered. The hospitalist Dr. Rojo and I reviewed the case at length and he has no other recommendations or concerns. Carafate has been ordered at the request of the endoscopist and admission process will be established. Patient' s blood pressure has remained stable after fluids were started. Patient otherwise resting comfortably in the bed with no other acute etiology noted during the treatment course. Time: 11:52 Vital Signs Temperature 97.8 F 06/29/18 09:49 Pulse Rate 87 06/29/18 09:49 Respiratory Rate 19 06/29/18 09:49 Blood Pressure 70/56 06/29/18 09:49 O2 Sat by Pulse Oximetry 95 06/29/18 09:49 Temperature 97.8 F 06/29/18 10:04 Pulse Rate 73 06/29/18 11:17 Respiratory Rate 20 06/29/18 11:17 Blood Pressure 106/71 06/29/18 11:17 O2 Sat by Pulse Oximetry 97 06/29/18 11:17 Oxygen Delivery Oxygen Delivery Room Air GI Bleed - MDM Narrative Medical decision making narrative: Upper GI bleed, hematemesis, anemia - Medical Records Medical records reviewed: Yes I reviewed the patient's medical records. - Lab Data Lab results reviewed: Yes I reviewed the patient's lab results. Result diagrams: 06/29/18 10:16 06/29/18 10:16 Lab Results 06/29/18 06/29/18 06/29/18 Range/Units 10:16 10:16 10:16 WBC 23.4 H (4.3-11.1) K/mcL RBC 3.27 L (3.82-4.97) M/mcL Hgb 9.6 L (11.5-15.4) g/dL Hct 30.5 L (35.3-44.9) % MCV 93.3 (83.0-100.0) fL MCH 29.4 (28.0-33.3) pg MCHC 31.5 L (31.6-35.5) g/dL RDW 16.4 H (11.5-14.5) % Plt Count 461 H (140-400) K/mcL MPV 9.4 (9.4-12.4) fL Immature Gran % 0.9 (0-4) % Seg Neutrophils % 81.7 % Lymphocytes % 10.9 % Monocytes % 4.5 % Eosinophils % 1.4 % Basophils % 0.6 % Neutrophils # 19.1 H (1.6-8.9) K/mcL Lymphocytes # 2.5 (0.6-4.6) K/mcL Monocytes # 1.1 (0.0-1.3) K/mcL Eosinophils # 0.3 (0.0-0.6) K/mcL Basophils # 0.1 (0.0-0.2) K/mcL PT 11.2 (9.4-12.1) Seconds INR 1.0 APTT 25.1 L (26.0-36.0) Seconds Sodium 140 (136-145) mEq/L Potassium 4.5 (3.5-5.1) mEq/L Chloride 111 H (98-107) mEq/L Carbon Dioxide 25 (23-29) mEq/L BUN 23 (8-23) mg/dL Creatinine 0.96 (0.60-1.20) mg/dL Est GFR ( Amer) > 60 (> 60) Est GFR (Non-Af Amer) 59 L (> 60) BUN/Creatinine Ratio 24 (6-26) Glucose 177 H (70-105) mg/dL Calculated Osmolality 298 (280-300) Calcium 9.0 (8.6-10.3) mg/dL Troponin I < 0.03 (< 0.04) ng/mL Blood Type Antibody Screen 06/29/18 Range/Units 10:16 WBC (4.3-11.1) K/mcL RBC (3.82-4.97) M/mcL Hgb (11.5-15.4) g/dL Hct (35.3-44.9) % MCV (83.0-100.0) fL MCH (28.0-33.3) pg MCHC (31.6-35.5) g/dL RDW (11.5-14.5) % Plt Count (140-400) K/mcL MPV (9.4-12.4) fL Immature Gran % (0-4) % Seg Neutrophils % % Lymphocytes % % Monocytes % % Eosinophils % % Basophils % % Neutrophils # (1.6-8.9) K/mcL Lymphocytes # (0.6-4.6) K/mcL Monocytes # (0.0-1.3) K/mcL Eosinophils # (0.0-0.6) K/mcL Basophils # (0.0-0.2) K/mcL PT (9.4-12.1) Seconds INR APTT (26.0-36.0) Seconds Sodium (136-145) mEq/L Potassium (3.5-5.1) mEq/L Chloride (98-107) mEq/L Carbon Dioxide (23-29) mEq/L BUN (8-23) mg/dL Creatinine (0.60-1.20) mg/dL Est GFR ( Amer) (> 60) Est GFR (Non-Af Amer) (> 60) BUN/Creatinine Ratio (6-26) Glucose (70-105) mg/dL Calculated Osmolality (280-300) Calcium (8.6-10.3) mg/dL Troponin I (< 0.04) ng/mL Blood Type O POSITIVE Antibody Screen NEGATIVE - Radiology Data Radiology results reviewed: Yes I reviewed the patient's radiology results. Chest x-ray shows stable presentation with scarring of the right lower lung. No acute signs of pneumonia or abnormality. - EKG Data EKG attestation: Yes I reviewed and interpreted this EKG. EKG results narrative: EKG shows sinus rhythm. Ventricular rate of 85. CA interval 182. QTC of 379. QTC of 451. [place] appears to be normal. No acute signs of WPW or Brugada syndrome. No acute signs of ST segment elevation or abnormality. Reviewed and compared to an EKG collected on 09/26/17 with no acute specific changes at this time. Patient has no chest pain
[2018-06-29] MEDS ORDERED: Sucralfate 1 GM TABLET PO STA (11:50)
[2018-06-29 13:41] LABS: Hematocrit 23.6 % (35.3-44.9)
[2018-06-29 13:42] LABS: Hemoglobin 7.3 g/dL (11.5-15.4)
[2018-06-29] MEDS ORDERED: 0.9 % Sodium Chloride 1,000 ML IVC SCH ×2 (13:45→14:00)
[2018-06-29] MEDS ORDERED: Naloxone 0.4 MG/ML INJ IVP PRN (13:49)
--- NOTE | 2018-06-29 13:54 | General Surgery Consult Note ---
<Mine Patel - Last Filed: 06/29/18 14:41> Date of Encounter: 06/29/18 Time of Encounter: 11:45 Assessment and Plan (1) Hematemesis Current Visit: Yes Status: Acute NPO PPI therapy- gtt ordered per medicine service Carafate QID PRBC transfusion per medicine service Monitor Hgb/Hct IV fluids Check H. Pylori Hold ASA and Plavix Plan for EGD after resuscitation with Dr. Nation- 06/30/18 Surgery will continue to follow and assess progress Qualifiers: Nausea presence: with nausea Qualified Code(s): K92.0 - Hematemesis (2) Acute blood loss anemia Current Visit: Yes Status: Acute Monitor Hgb/Hct PRBC transfusion ordered per medicine service (3) GERD (gastroesophageal reflux disease) Current Visit: No Status: Chronic PPI therapy- gtt ordered per medicine service Qualifiers: Esophagitis presence: esophagitis presence not specified Qualified Code(s) : K21.9 - Gastro-esophageal reflux disease without esophagitis (4) CAD (coronary artery disease) Current Visit: No Status: Chronic stent placement in 2013 Hold Plavix and ASA in the setting of acute upper GI bleed Qualifiers: Coronary Disease-Associated Artery/Lesion type: [place] artery [place] vs. transplanted heart: [place] heart Associated angina: angina presence unspecified Qualified Code(s): I25.10 - Atherosclerotic heart disease of [place] coronary artery without angina pectoris (5) History of gastric ulcer Current Visit: Yes Status: Acute s/p EGD 08/[address] Suazo Patient stopped PPI therapy approximately 1 month ago History of Present Illness Consult date: 06/29/18 Reason for consult: other (UGI bleed) Requesting physician: Maxx Ferris History of present illness: Ms. Gil is a 58 year old female with a history of HTN, CAD, Rheumatoid arthritis, HLD, and vitamin D deficiency. She presented to the ED today after experiencing 5-6 episodes of hematemesis. She states that she initially vomited up large amounts of clots followed by smaller amounts of coffee ground material. She states that she had an episode similar to this in August of 2017 and she did have an EGD/Colonoscopy with Dr. Suazo at that time. She reports having a bleeding gastric ulcer at that time. She also reports a flat polyp found on her colonoscopy. She was treated with PPI therapy and states that she stopped taking the medicine approximately 1 month ago. She reports increasing heartburn since stopping her PPI. She reports occasional epigastric discomfort. She reports that she did eat spicy chili 3 days ago which may have aggrevated her symptoms. She denies any diarrhea/constipation. Denies any shortness of breath or chest pains. Admits to feeling light headed and fatigued. She is currently on Plavix, ASA and methotrexate. Her Hgb on presentation was 9.6 and repeat is 7.3. Surgery has been asked to see and evaluate the patient for endoscopic evaluation. The patient states that she has had bronchitis and pneumonia for the past 2.5 weeks and has been treated with antibiotics and prednisone. Past Med Surg Social Fam HX - Past Medical History Source: patient, old records reviewed Medical history: arthritis (rheumatoid), COPD, GERD, GI bleed, hyperlipidemia, hypertension, myocardial infarction Additional medical history: bleeding stomach ulcers Psychiatric history: no psych history - Past Surgical History Surgical History: angioplasty/stent (2013), herniorrhaphy (Repair of diaphragmatic hernia 2012 at [facility]), hysterectomy Additional surgical history: Tubal ligation, EGD/Colonoscopy 08/2017 - Social History Smoking Status: Current every day smoker Smokeless Tobacco Status: No Alcohol use: none Drug use: none Current living situation: Home - Independent Activity Level: Independent ambulation - Family History Mother Family Member Ethnicity: Non- Living Status: Still Living Hx Family Cardiac Disorders: No Hx Family Respiratory Disorders: No Hx Family Cancer: No Hx Family GI Disorders: Yes Hx Family Endocrine Disorder: Yes Hx Family Neuromuscular Disorders: No Hx Family Neurologic Disorders: No Hx Family HEENT Disorders: No Hx Family Autoimmune Disorders: No Medications and Allergies Aspirin Enteric Coated [Aspirin EC] 81 mg PO DAILY 08/12/15 [History] Cholecalciferol (D-3) [Vitamin D] 1,000 unit PO DAILY 09/01/16 [History] Folic Acid 1 mg PO DAILY 09/26/17 [History] Hydroxychloroquine [Plaquenuil] 300 mg PO DAILY 09/26/17 [History] Methotrexate [Otrexup] 15 mg PO FR 09/27/17 [History] Ferrous Sulfate 325 mg PO DAILY #30 tablet 09/29/17 [Rx] Isosorbide MONOnitrate (24 HR) [Imdur] 60 mg PO DAILY 09/29/17 [History] Atorvastatin Calcium 80 mg PO DAILY 06/29/18 [History] Clopidogrel [Plavix] 75 mg PO DAILY 06/29/18 [History] Ferrous Sulfate [Iron] 325 mg PO DAILY 06/29/18 [History] HYDROcodone/Acet 5/325 mg [[place] 5-325 mg] 1 tab PO BID PRN 06/29/18 [History] Levothyroxine Sodium [Levoxyl] 50 mcg PO QAM 06/29/18 [History] Losartan Potassium [Cozaar] 100 mg PO DAILY 06/29/18 [History] Metoprolol [Lopressor] 12.5 mg PO BID 06/29/18 [History] 3 Allergy/AdvReac Type Severity Reaction Status Date / Time codeine Allergy Hives Verified 06/29/18 09:59 lisinopril AdvReac Cough Verified 06/29/18 09:59 Review of Systems All systems PM: reviewed and no additional remarkable complaints except as stated (in the HPI) All systems PM: The remainder of the systems were reviewed and are negative General Surgery Exam Initial Vital Signs Temp Pulse Resp BP Pulse Ox 97.8 F 87 19 70/56 95 06/29/18 09:49 06/29/18 09:49 06/29/18 09:49 06/29/18 09:49 06/29/18 09:49 - General physical appearance well developed, well nourished, no distress - Eyes PERRL, normal ocular movement - ENT normal mucosa, atraumatic, normocephalic - Neck trachea midline - Respiratory normal respiratory effort, clear to auscultation - Cardiovascular Cardiovascular exam: Present: RRR - Abdomen Abdomen general surgery: Present: bowel sounds present, soft, non tender - Integumentary Integumentary general surgery: Present: warm and dry - Neurologic Present: CN 2-12 grossly intact - Psychiatric Psychiatric general surgery: Present: appropriate, oriented to person, oriented to place, oriented to time, speech is normal, memory intact Exam Initial Vital Signs Temp Pulse Resp BP Pulse Ox 97.8 F 87 19 70/56 95 06/29/18 09:49 06/29/18 09:49 06/29/18 09:49 06/29/18 09:49 06/29/18 09:49 Results - Labs 06/29/18 13:25 10/02/18 10:16 Abnormal lab results WBC 23.4 K/mcL (4.3-11.1) H 06/29/18 10:16 RBC 3.27 M/mcL (3.82-4.97) L 06/29/18 10:16 Hgb 9.6 g/dL (11.5-15.4) L 06/29/18 10:16 Hct 30.5 % (35.3-44.9) L 06/29/18 10:16 MCHC 31.5 g/dL (31.6-35.5) L 06/29/18 10:16 RDW 16.4 % (11.5-14.5) H 06/29/18 10:16 Plt Count 461 K/mcL (140-400) H 06/29/18 10:16 Neutrophils # 19.1 K/mcL (1.6-8.9) H 06/29/18 10:16 APTT 25.1 Seconds (26.0-36.0) L 06/29/18 10:16 Chloride 111 mEq/L (98-107) H 06/29/18 10:16 Est GFR (Non-Af Amer) 59 (> 60) L 06/29/18 10:16 Glucose 177 mg/dL (70-105) H 06/29/18 10:16 All other labs normal. Consult Discharge Plan - Plan Referrals: Marilin Deal, PSYCHOTHERAPIST [Primary Care Provider] - - Attending Attestation For this encounter, I have reviewed the [employer] INSTRUCTOR or PA documentation, treatment plan, and medical decision making; and I have had face to face time with this patient. <Isabella Nation - Last Filed: 06/30/18 17:16> Date of Encounter: 06/29/18 Assessment and Plan (1) CAD (coronary artery disease) Current Visit: No Status: Chronic Qualifiers: Coronary Disease-Associated Artery/Lesion type: [place] artery [place] vs. transplanted heart: [place] heart Associated angina: angina presence unspecified Qualified Code(s): I25.10 - Atherosclerotic heart disease of [place] coronary artery without angina pectoris (2) GERD (gastroesophageal reflux disease) Current Visit: No Status: Chronic Qualifiers: Esophagitis presence: esophagitis presence not specified Qualified Code(s) : K21.9 - Gastro-esophageal reflux disease without esophagitis (3) Hematemesis Current Visit: Yes Status: Acute Qualifiers: Nausea presence: with nausea Qualified Code(s): K92.0 - Hematemesis (4) Acute blood loss anemia Current Visit: Yes Status: Acute (5) History of gastric ulcer Current Visit: Yes Status: Acute patient with history antral gastric ulcer, treated with PPI therapy will plan EGD in next 24 hrs, risks and benefits discussed and she wishes to proceed fluid resuscitate, transfuse as needed protonix/carafate serial abdominal exams Review of Systems All systems PM: The remainder of the systems were reviewed and are negative General Surgery Exam Initial Vital Signs Temp Pulse Resp BP Pulse Ox 97.8 F 87 19 70/56 95 06/29/18 09:49 06/29/18 09:49 06/29/18 09:49 06/29/18 09:49 06/29/18 09:49 - General physical appearance well nourished, no distress, other (pale) - Eyes PERRL, normal ocular movement - ENT normal mucosa, normocephalic - Respiratory normal expansion, normal respiratory effort - Cardiovascular Cardiovascular exam: Present: RRR - Abdomen Abdomen general surgery: Present: bowel sounds present, soft, non tender. Absent: distended, tender - Integumentary Integumentary general surgery: Present: warm and dry - Neurologic Present: CN 2-12 grossly intact - Musculoskeletal Present: normal posture - Psychiatric Psychiatric general surgery: Present: A&Ox3, speech is normal Exam Initial Vital Signs Temp Pulse Resp BP Pulse Ox 97.8 F 87 19 70/56 95 06/29/18 09:49 06/29/18 09:49 06/29/18 09:49 06/29/18 09:49 06/29/18 09:49 Results - Labs 06/30/18 12:03 06/30/18 05:56 Abnormal lab results WBC 14.2 K/mcL (4.3-11.1) H 06/30/18 05:56 RBC 2.69 M/mcL (3.82-4.97) L 06/30/18 05:56 Hgb 8.7 g/dL (11.5-15.4) L 06/30/18 12:03 Hct 26.5 % (35.3-44.9) L 06/30/18 12:03 RDW 16.3 % (11.5-14.5) H 06/30/18 05:56 MPV 9.2 fL (9.4-12.4) L 06/30/18 05:56 Neutrophils # 9.6 K/mcL (1.6-8.9) H 06/30/18 05:56 Nucleated RBCs/100 WBC 0.1 /100 WBC (0) H 06/30/18 05:56 APTT 25.1 Seconds (26.0-36.0) L 06/29/18 10:16 Chloride 118 mEq/L (98-107) H 06/30/18 05:56 BUN 40 mg/dL (8-23) H 06/30/18 05:56 Creatinine 0.54 mg/dL (0.60-1.20) L 06/30/18 05:56 BUN/Creatinine Ratio 74 (6-26) H 06/30/18 05:56 POC Glucose 107 mg/dL (70-99) H 06/29/18 18:54 Calculated Osmolality 307 (280-300) H 06/30/18 05:56 Calcium 8.0 mg/dL (8.6-10.3) L 06/30/18 05:56 Diabetes panel 06/30/18 Range/Units 05:56 Sodium 144 (136-145) mEq/L Potassium 4.1 (3.5-5.1) mEq/L Chloride 118 H (98-107) mEq/L Carbon Dioxide 23 (23-29) mEq/L BUN 40 H (8-23) mg/dL Creatinine 0.54 L (0.60-1.20) mg/dL Glucose 85 (70-105) mg/dL Calcium 8.0 L (8.6-10.3) mg/dL Calcium panel 06/30/18 Range/Units 05:56 Calcium 8.0 L (8.6-10.3) mg/dL Pituitary panel 06/30/18 Range/Units 05:56 Sodium 144 (136-145) mEq/L Potassium 4.1 (3.5-5.1) mEq/L Chloride 118 H (98-107) mEq/L Carbon Dioxide 23 (23-29) mEq/L BUN 40 H (8-23) mg/dL Creatinine 0.54 L (0.60-1.20) mg/dL Glucose 85 (70-105) mg/dL Calcium 8.0 L (8.6-10.3) mg/dL Adrenal panel 06/30/18 Range/Units 05:56 Sodium 144 (136-145) mEq/L Potassium 4.1 (3.5-5.1) mEq/L Chloride 118 H (98-107) mEq/L Carbon Dioxide 23 (23-29) mEq/L BUN 40 H (8-23) mg/dL Creatinine 0.54 L (0.60-1.20) mg/dL Glucose 85 (70-105) mg/dL Calcium 8.0 L (8.6-10.3) mg/dL All other labs normal. - Attending Attestation I have personally performed a face to face evaluation on this patient. I have reviewed and agree with the care plan. History and Exam by me shows:
--- NOTE | 2018-06-29 14:10 | Internal Med History&Physical ---
<Param Mahajan P - Last Filed: 06/29/18 13:59> Date of Encounter: 06/29/18 Time of Encounter: 13:00 Internal Medicine - H&P: HPI Chief complaint: Hematemsis Admitted From: Home Plans for Post Hospital Care: Home History of present illness: Ms. Gil is a 58 year old female with past medical history significant for GERD, GI Bleed (most recent August 2017), CAD with stents x2 in 2013, hypertension, COPD, hyperlipidemia, and rheumatoid arthritis who presents for nausea and vomiting dark red blood 5-6 times starting this morning. Was started on Omeprazole following last GI bleed in August 2017 but reports stopping the medication without medical direction around a month ago after reading about potential side effects on [employer]. States she has been experiencing generalized weakness and lightheadedness for the past 2.5 weeks getting progressively worse. Was also treated by PCP for bronchitis with 5 day dose of antibiotics and steroids during this same time frame and reports finishing her medications 3 days ago. Reports her cough persists but has improved and is now only producing a minimal amount of sputum which is now clear. Also reports chills that have improved as well. Denies chest pain, shortness of breath, abdominal pain, fever, blood in stool, bowel or bladder changes. Last bowel movement was today and reportedly normal per patient. Doesn't routinely check blood pressures at home and is unsure if they have been running low. Discussed patient with Dr Rojo. Past Med Surg Social Fam HX - Past Medical History Medical history: arthritis, COPD, GERD, GI bleed, hyperlipidemia, hypertension, myocardial infarction Additional medical history: bleeding stomach ulcers Psychiatric history: no psych history - Past Surgical History Surgical History: angioplasty/stent, herniorrhaphy - Social History Smoking Status: Current every day smoker Smokeless Tobacco Status: No Alcohol use: none Drug use: none - Family History Mother Family Member Ethnicity: Non- Living Status: Still Living Hx Family Cardiac Disorders: No Hx Family Respiratory Disorders: No Hx Family Cancer: No Hx Family GI Disorders: Yes Hx Family Endocrine Disorder: Yes Hx Family Neuromuscular Disorders: No Hx Family Neurologic Disorders: No Hx Family HEENT Disorders: No Hx Family Autoimmune Disorders: No Internal Medicine - H&P: Meds Aspirin Enteric Coated [Aspirin EC] 81 mg PO DAILY 08/12/15 [History] Cholecalciferol (D-3) [Vitamin D] 1,000 unit PO DAILY 09/01/16 [History] Folic Acid 1 mg PO DAILY 09/26/17 [History] Hydroxychloroquine [Plaquenuil] 300 mg PO DAILY 09/26/17 [History] Methotrexate [Otrexup] 15 mg PO FR 09/27/17 [History] Ferrous Sulfate 325 mg PO DAILY #30 tablet 09/29/17 [Rx] Isosorbide MONOnitrate (24 HR) [Imdur] 60 mg PO DAILY 09/29/17 [History] Atorvastatin Calcium 80 mg PO DAILY 06/29/18 [History] Clopidogrel [Plavix] 75 mg PO DAILY 06/29/18 [History] Ferrous Sulfate [Iron] 325 mg PO DAILY 06/29/18 [History] HYDROcodone/Acet 5/325 mg [[place] 5-325 mg] 1 tab PO BID PRN 06/29/18 [History] Levothyroxine Sodium [Levoxyl] 50 mcg PO QAM 06/29/18 [History] Losartan Potassium [Cozaar] 100 mg PO DAILY 06/29/18 [History] Metoprolol [Lopressor] 12.5 mg PO BID 06/29/18 [History] 3 Allergy/AdvReac Type Severity Reaction Status Date / Time codeine Allergy Hives Verified 06/29/18 09:59 lisinopril AdvReac Cough Verified 06/29/18 09:59 All Systems PM: A 10-system review of systems was performed and is negative for pertinent findings except as documented above in the HPI. - Constitutional Vitals: Temp Pulse Resp BP Pulse Ox 97.8 F 83 20 90/54 100 06/29/18 10:04 06/29/18 12:54 06/29/18 12:54 06/29/18 12:54 06/29/18 12:54 Exam: General: Alert and oriented. Skin:Pale, no rash, no lesions. HEENT:Pupils equal, round and reactive. Cardiovascular:Normal S1 & S2, no rubs, murmurs or gallops. No JVD. Pulse regular. Lungs:Breath sounds decreased, no wheezes or crackles. Abdomen:Soft, non-tender, no rigidity. Extremities:No deformity, no edema, no joint swelling or clubbing. Tenderness noted to lower extremities which she states is chronic for her with her arthritis. Neurological:Normal cognition and motor skills. Pulses:Carotid and radial pulses normal +2. Rest of the physical exam is non contributory. Internal Med - H&P Results - Labs CBC & Chem 7: 06/29/18 13:25 06/29/18 10:16 Labs: Short CBC 06/29/18 Range/Units 13:25 Hgb 7.3 L D (11.5-15.4) g/dL Hct 23.6 L (35.3-44.9) % - Assessment and plan (1) Hematemesis Current Visit: Yes Status: Acute Assessment and plan: ER consulted [facility]. Hold anticoagulants. Protonix drip started in ER, will continue same. NPO. Zofran as needed. Qualifiers: Nausea presence: with nausea Qualified Code(s): K92.0 - Hematemesis (2) Hemoglobin decreased Current Visit: Yes Status: Acute Assessment and plan: Type and screen completed in ER. Repeat H/H, HGB dropped to 7.3, transfusion ordered in ER. H/H ordered q6. (3) Increased white blood cell count Current Visit: Yes Status: Acute Assessment and plan: Repeat a.m. labs. Likely secondary to recent antibiotic and steroid treatment. Blood cultures ordered. Monitor for infection. UA pending. Qualifiers: Leukocytosis type: unspecified Qualified Code(s): D72.829 - Elevated white blood cell count, unspecified (4) Hypotension Current Visit: Yes Status: Acute Assessment and plan: 1 liter bolus given in ER, repeat 1 liter bolus ordered. MIVF ordered in ER, will continue same after 2nd liter administered. Hold antihypertensives. Qualifiers: Hypotension type: unspecified hypotension type Qualified Code(s): I95.9 - Hypotension, unspecified - Time Spent With Patient Total time spent is greater than 50% in coordination of care (as documented) at patient's floor/unit and/or counseling patient: <DarrelSrkermit - Last Filed: 06/29/18 14:39> Date of Encounter: 06/29/18 Time of Encounter: 14:30 Internal Medicine - H&P: HPI History of present illness: Ms. Gil is a 58 year old female All Systems PM: A 10-system review of systems was performed and is negative for pertinent findings except as documented above in the HPI. - Constitutional Vitals: Temp Pulse Resp BP Pulse Ox 97.8 F 76 20 96/61 100 06/29/18 10:04 06/29/18 14:23 06/29/18 14:23 06/29/18 14:23 06/29/18 14:23 Internal Med - H&P Results - Labs CBC & Chem 7: 06/29/18 13:25 06/29/18 10:16 Labs: Short CBC 06/29/18 Range/Units 13:25 Hgb 7.3 L D (11.5-15.4) g/dL Hct 23.6 L (35.3-44.9) % - Assessment and plan (1) Hematemesis Current Visit: Yes Status: Acute Qualifiers: Qualified Code(s): K92.0 - Hematemesis (2) Hemoglobin decreased Current Visit: Yes Status: Acute (3) Increased white blood cell count Current Visit: Yes Status: Acute Qualifiers: Qualified Code(s): D72.829 - Elevated white blood cell count, unspecified (4) Hypotension Current Visit: Yes Status: Acute Qualifiers: Qualified Code(s): I95.9 - Hypotension, unspecified - Time Spent With Patient Total time spent is greater than 50% in coordination of care (as documented) at patient's floor/unit and/or counseling patient: - Attending Attestation I saw, evaluated and examined this patient and my medical decision-making was reviewed with the Nurse Practitioner, Param Mahajan. I agree with the documented findings, disposition and treatment plan as described except to any changes set forth below. We independently had [id number] contact with the patient. Patient is 58-year-old female with a history of gastric ulcers, GI bleed, coronary artery disease, who was brought to the ER with complaints of upper GI bleed and hematemesis. She reports that symptoms began this morning. She has been feeling weak and tired since yesterday. She had another bout of emesis on arrival to the ER here. Since then she has not had any more episodes of hematemesis. No fevers or chills reported. She had recently been diagnosed with bronchitis/pneumonia and was placed on antibiotics and steroids for it. She does not recollect what antibiotic it was other than that she took it twice a day. She has completed her antibiotic course and does not report any cough or sputum production at this time. She does have intermittent sharp pain in the epigastric region. On examination, patient is very pale, heart sounds are normal. Good air entry bilaterally. Patient does have right basal crackles. Abdomen is soft, mild tenderness in epigastric region. Labs show hemoglobin of 9.6 which has since decreased to 7.3. She did receive some fluids in the ER. Chest x-ray shows right lower lobe obesity which appears to be present on her prior x-ray and could be related to recent episode of bronchitis/pneumonia. WBC count is elevated at 23.4. Acute hematemesis and severe anemia: Keep nothing by mouth. Surgery service consulted for evaluation and possible upper GI endoscopy. Keep patient on IV PPI drip. Monitor vital signs closely. Monitor hemoglobin levels. We will transfuse packed red blood cells given patient's decrease in hemoglobin levels. High risk for complications. Hold Plavix. Patient was recently on antibiotics. Does not recollect what antibiotic. If she was on doxycycline which is dosed twice a day, this can cause pain esophagitis likely contributing to her symptoms. Also patient's recently stopped taking omeprazole which was prescribed for gastric ulcers earlier this year. Leukocytosis: Likely related to recent steroid use. Since patient's symptoms have now resolved with regards to pneumonia/bronchitis, no further indications for antibiotics. No reported recent NSAID use.
[2018-06-29] MEDS ORDERED: Ondansetron 4 MG/2 ML VIAL IVP PRN (14:22)
[2018-06-29] MEDS ORDERED: 0.9 % Sodium Chloride 250 ML ONE (14:31)
[2018-06-29] MEDS ORDERED: Lidocaine Jelly 11 ml Syringe MM ONE (14:42)
[2018-06-29] MEDS ORDERED: Tetracaine/Benzocaine/Butamben 1 SPRAY AEROSOL MM ONE (14:42)
[2018-06-29] MEDS ORDERED: 0.9 % Sodium Chloride 500 ML ONE (20:02)
[2018-06-29] MEDS: Sucralfate 1 GM TABLET PO SCH (20:06)
[2018-06-29 20:30] LABS: Hematocrit 25.7 % (35.3-44.9); Hemoglobin 8.2 g/dL (11.5-15.4)
--- NOTE | 2018-06-29 20:31 | Anesthesia Evaluation PreOp ---
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 History: Denies Any Significant HX Other Medical History: GERD, Other (hematemesis, acute blood loss anemia) Anesthesia History: No Prior Anesthetic Complications, Past Anesthesia (hernia repair, tubal, hysterectomy) Alcohol Use: none Drug use: none Medications and Allergies Aspirin Enteric Coated [Aspirin EC] 81 mg PO DAILY 08/12/15 [History] Cholecalciferol (D-3) [Vitamin D] 1,000 unit PO DAILY 09/01/16 [History] Folic Acid 1 mg PO DAILY 09/26/17 [History] Hydroxychloroquine [Plaquenuil] 300 mg PO DAILY 09/26/17 [History] Methotrexate [Otrexup] 15 mg PO FR 09/27/17 [History] Ferrous Sulfate 325 mg PO DAILY #30 tablet 09/29/17 [Rx] Isosorbide MONOnitrate (24 HR) [Imdur] 60 mg PO DAILY 09/29/17 [History] Atorvastatin Calcium 80 mg PO DAILY 06/29/18 [History] Clopidogrel [Plavix] 75 mg PO DAILY 06/29/18 [History] Ferrous Sulfate [Iron] 325 mg PO DAILY 06/29/18 [History] HYDROcodone/Acet 5/325 mg [[place] 5-325 mg] 1 tab PO BID PRN 06/29/18 [History] Levothyroxine Sodium [Levoxyl] 50 mcg PO QAM 06/29/18 [History] Losartan Potassium [Cozaar] 100 mg PO DAILY 06/29/18 [History] Metoprolol [Lopressor] 12.5 mg PO BID 06/29/18 [History] 3 Allergy/AdvReac Type Severity Reaction Status Date / Time codeine Allergy Hives Verified 06/29/18 09:59 lisinopril AdvReac Cough Verified 06/29/18 09:59 - Meds/Allergy Pre-op Review Medications Reviewed: Yes Allergies Reviewed: Yes Beta Blockers on Current Med List: No Anesthesia Results - Labs 06/29/18 13:25 06/29/18 10:16 Laboratory Tests 06/29/18 10:16 PT 11.2 INR 1.0 APTT 25.1 L - Imaging EKG: report reviewed (SINUS TACHYCARDIA ABNORMAL RHYTHM ECG Electronically Signed On 09-29-2017 15:55:56 EST by Ancelmo Cisneros) Anesthesia Exam Vital Signs/O2 Sat, Most Current Temp Pulse Resp BP Pulse Ox 98 F 80 20 134/77 99 06/29/18 16:49 06/29/18 16:49 06/29/18 16:49 06/29/18 16:49 06/29/18 16:30 Weight: 68kg
[2018-06-30] MEDS: Pantoprazole 40 MG in 0.9 % Sodium Chloride Mini Bag 100 ML IVC SCH ×5 (02:30→22:15)
[2018-06-30 06:31] LABS: Basophils # 0.1 K/mcL (0.0-0.2); Basophils % 0.6 %; Eosinophils # 0.2 K/mcL (0.0-0.6); Eosinophils % 1.1 %; Hematocrit 24.4 % (35.3-44.9); Hemoglobin 7.9 g/dL (11.5-15.4); Immature Granulocytes % 1.1 % (0-4); Lymphocytes # 3.2 K/mcL (0.6-4.6); Lymphocytes % 22.4 %; Mean Corpuscular HGB Conc 32.4 g/dL (31.6-35.5); Mean Corpuscular Hemoglobin 29.4 pg (28.0-33.3); Mean Corpuscular Volume 90.7 fL (83.0-100.0); Mean Platelet Volume 9.2 fL (9.4-12.4); Monocytes % 6.9 %; Neutrophils # 9.6 K/mcL (1.6-8.9); Nucleated Red Blood Cells 0.1 /100 WBC (0); Platelet Count 321 K/mcL (140-400); Red Blood Count 2.69 M/mcL (3.82-4.97); Red Cell Distribution Width 16.3 % (11.5-14.5); Segmented Neutrophils % 67.9 %
[2018-06-30 06:50] LABS: BUN/Creatinine Ratio 74 (6-26); Blood Urea Nitrogen 40 mg/dL (8-23); Carbon Dioxide 23 mEq/L (23-29); Chloride 118 mEq/L (98-107); Glucose 85 mg/dL (70-105); Osmolality,Calculated 307 (280-300); Potassium 4.1 mEq/L (3.5-5.1); Sodium 144 mEq/L (136-145); eGFR For Non-African Americans > 60 (> 60)
[2018-06-30] MEDS: Sucralfate 1 GM TABLET PO SCH ×4 (08:44→22:15)
[2018-06-30] MEDS: Folic Acid 1 MG TABLET PO SCH (08:44)
[2018-06-30] MEDS: Cholecalciferol (D-3) 1,000 UNIT TABLET PO SCH (08:44)
[2018-06-30] MEDS: Ringers Solution, Lactated 1,000 ML IVC SCH ×2 (08:51→17:03)
--- NOTE | 2018-06-30 08:57 | Electrocardiograph Report ---
[place] [employer] Test Date: 2018-06-29 Pat Name: Queenie Gil Department: [id number] Room: 06 Gender: F Grocery Checker: : 1960 Requested By: Maxx Ferris Order Number: [id number] Reading MD: Walker Bell Measurements Intervals [place] Rate: 85 P: 45 MD: 182 QRS: 74 QRSD: 82 T: 59 QT: 379 QTc: 451 Interpretive Statements Sinus rhythm wnl Electronically Signed On 06-30-2018 8:55:09 EDT by Walker Bell
--- NOTE | 2018-06-30 09:49 | Internal Med Progress Note ---
<Franki Tinoco - Last Filed: 06/30/18 11:47> Hospitalist Progress Note - Encounter Date of Encounter: 06/30/18 Time of Encounter: 09:46 - Subjective Interval History: Pt seen and examined at bedside. Resting comfortably, NAD. Denies any recurrent episodes of hematemesis. Last BM yesterday, denies any visible blood or dark or tary stools. States that her decision to d/c her original ppi was based off a facebook article and a discussion she had with her Raisa DNP. ROS: denies f/c, headaches, changes in vision or hearing, cp, sob, palpitations, abdominal pain, n/v/d - Exam Vitals: Temp Pulse Resp BP Pulse Ox 97.7 F 76 14 145/96 100 06/30/18 07:30 06/30/18 09:00 06/30/18 09:00 06/30/18 09:00 06/30/18 09:00 Exam: General: Alert and oriented. HEENT:Pupils equal, round and reactive. CV +S1 & S2, no rubs, murmurs or gallops. Pulse regular. Lungs:Breath sounds decreased, wheezes to ascultation in left upper lung field Abdomen:Soft, non-tender, no rigidity. Extremities:No deformity, no edema, no joint swelling or clubbing. Neurological:Normal cognition and motor skills. Pulses:Carotid and radial pulses normal +2. - Assessment and Plan (1) Hematemesis Current Visit: Yes Status: Acute Assessment and Plan: Multiple episodes of hematesis starting yesterday Previous episode in September 2017 where she was discovered to have gastric ulcer Pt was on PPI but d/c due to information gathered on facebook Currently on PPI drip EGD by surgery later today, keep NPO On plavix at home, will hold (2) Anemia Current Visit: Yes Status: Acute Assessment and Plan: Hgb 8.2 on admission, dropped to 7.3, transfused 2 units PRBC and 1 unit of platelets Hgb 9.6 today H/H ordered q6. (3) Increased white blood cell count Current Visit: Yes Status: Acute Assessment and Plan: WBC 23 on admission, 14.2 this morning Pt report recent episode of bronchitis/pna with abx and steroid use; however, unable to recall which abx Denies f/c, afebrile, normotensive this morning (4) Hypotension Current Visit: Yes Status: Resolved Assessment and Plan: hypotensive on admission pt given multiple L of fluids in the ED all antihypertensives held pressures back to 130s/70s DVT Prophylaxis: Pt using SCDs currently - Time Spent with Patient Total time spent is greater than 50% in coordination of care (as documented) at patient's floor/unit and/or counseling patient: Internal Medicine: Result - Labs CBC & Chem 7: 06/30/18 05:56 06/30/18 05:56 Labs: Short CBC 06/29/18 06/30/18 Range/Units 19:35 05:56 WBC 14.2 H (4.3-11.1) K/mcL Hgb 8.2 L 7.9 L (11.5-15.4) g/dL Hct 25.7 L 24.4 L (35.3-44.9) % Plt Count 321 (140-400) K/mcL Neutrophils # 9.6 H (1.6-8.9) K/mcL BMP 06/30/18 05:56 Sodium 144 Potassium 4.1 Chloride 118 H Carbon Dioxide 23 BUN 40 H Creatinine 0.54 L Glucose 85 Calcium 8.0 L - ABG Interpretation ABG results: PT/INR, D-dimer PT 11.2 Seconds (9.4-12.1) 06/29/18 10:16 Consult Discharge Plan - Plan Referrals: Marilin Deal, RETAIL LOSS PREVENTION INVESTIGATOR [Primary Care Provider] - <Matilda Santos - Last Filed: 06/30/18 15:34> Hospitalist Progress Note - Encounter Date of Encounter: 06/30/18 - Exam Vitals: Temp Pulse Resp BP Pulse Ox 98.0 F 75 16 132/90 100 06/30/18 11:43 06/30/18 15:00 06/30/18 15:00 06/30/18 15:00 06/30/18 15:00 - Assessment and Plan (1) Hematemesis Current Visit: Yes Status: Acute (2) Hemoglobin decreased Current Visit: Yes Status: Acute (3) Increased white blood cell count Current Visit: Yes Status: Acute (4) Hypotension Current Visit: Yes Status: Resolved - Time Spent with Patient Total time spent is greater than 50% in coordination of care (as documented) at patient's floor/unit and/or counseling patient: Internal Medicine: Result - Labs CBC & Chem 7: 06/30/18 12:03 06/30/18 05:56 Labs: Short CBC 06/29/18 06/30/18 06/30/18 Range/Units 19:35 05:56 12:03 WBC 14.2 H (4.3-11.1) K/mcL Hgb 8.2 L 7.9 L 8.7 L (11.5-15.4) g/dL Hct 25.7 L 24.4 L 26.5 L (35.3-44.9) % Plt Count 321 (140-400) K/mcL Neutrophils # 9.6 H (1.6-8.9) K/mcL BMP 06/30/18 05:56 Sodium 144 Potassium 4.1 Chloride 118 H Carbon Dioxide 23 BUN 40 H Creatinine 0.54 L Glucose 85 Calcium 8.0 L - ABG Interpretation ABG results: PT/INR, D-dimer PT 11.2 Seconds (9.4-12.1) 06/29/18 10:16 - Attending Attestation The history, physical exam, and medical decision making was performed by the medical student Earnest either while I was physically present and actively involved or I personally re-performed the exam and medical decision making. I have verified the accuracy of the medical student's documentation with regards to the history, physical exam findings, and medical decision making. Ms Gil was admitted with emesis with dark red clots x multiple episodes starting yesterday. Recently treated for pna with abx and steroids (completed) course. Otherwise in usual state of health. Hx gastric ulcers with recent cessation of home PPI. Awake, family at [facility]. She denies any preceding epigastric or other abd pain. No prior nausea, emesis, difficulty with eating, consitpation or diarrhea. Denies brbpr, hematochezia, melena. No fevers or chills. Overall cough with clear sputum and wheezing greatly improved with recent treatment. No lightheadedness, dizziness, sob or fatigue with hgb drop. gen- alert, awake,appears stated age eyes- pupils equal round, no conjunctival pallor, no scleral icterus cv- reg rate and rhythm, normal s1,s2, no murmurs appreciated, no le edema lungs- ctabl, no wheezing, rhonchi or crackles, normal resp effort on o2 nc abd- soft, non tender, non distended, decreased bs, no guarding skin- warm dry no pallor or jaundice neuro- AAOx3 Upper GIB with emesis with red blood No hx of liver cirrhosis to suspect EVs, + hx gastric ulcer with recent cessation of PPI and recent oral steroid course suspect rebleeding ulcer -npo, IVF, s/p prbcs and plt in ED, hgb stable and HD stable currently, PPI gtt , egd today Acute Anemia 2/2 gib - serial h/hs, transfuse for hgb <7 or active bleeding, holding home asa/plavix as per surg given risk v benefit at this time and scds ordered Leukocytosis 23 on admit, likely combination of reactive and recent steroid use as repeat today 14.2 -cont to monitor, afebrile -CXR RLL opacity, confirmed recent pna and completion of abx course, ua pending collection, bl cxs ngtd -given her recent pna, would not expect clear cxr at this time, overall symptoms are improved, will monitor clinically, if wbc elevation or fever will add abx for further pna treatment CAD with stents x2 in 2013, stable, - holding asa + plavix as above, holding anti hypertensives given low bps on admit in setting of gib <Franki Tinooc - Last Filed: 06/30/18 11:47> (1) Hematemesis Qualifiers: Nausea presence: with nausea Qualified Code(s): K92.0 - Hematemesis (2) Anemia Qualifiers: Anemia type: unspecified type Qualified Code(s): D64.9 - Anemia, unspecified (3) Increased white blood cell count Qualifiers: Leukocytosis type: unspecified Qualified Code(s): D72.829 - Elevated white blood cell count, unspecified (4) Hypotension Qualifiers: Hypotension type: unspecified hypotension type Qualified Code(s): I95.9 - Hypotension, unspecified <Matilda Santos - Last Filed: 06/30/18 15:34> (1) Hematemesis Qualifiers: Nausea presence: with nausea Qualified Code(s): K92.0 - Hematemesis (3) Increased white blood cell count Qualifiers: Leukocytosis type: unspecified Qualified Code(s): D72.829 - Elevated white blood cell count, unspecified (4) Hypotension Qualifiers: Hypotension type: unspecified hypotension type Qualified Code(s): I95.9 - Hypotension, unspecified
[2018-06-30 12:18] LABS: Hematocrit 26.5 % (35.3-44.9); Hemoglobin 8.7 g/dL (11.5-15.4)
[2018-06-30] MEDS ORDERED: *HR* FentaNYL (PF) 100 MCG/2 ML VIAL IVP ONE ×2 (16:33→17:02)
[2018-06-30] MEDS ORDERED: Tetracaine/Benzocaine/Butamben 1 SPRAY AEROSOL MM ONE (16:33)
[2018-06-30] MEDS ORDERED: Simethicone 40 MG/0.6 ML MLS IR ONE (16:33)
[2018-06-30] MEDS ORDERED: *HR* Midazolam HCl 5 MG/5 ML VIAL IVP ONE ×2 (16:33→16:35)
[2018-06-30] MEDS ORDERED: *HR* FentaNYL (PF) 100 MCG/2 ML VIAL ONE (16:36)
[2018-06-30] MEDS ORDERED: *HR* Promethazine 25 MG/ML VIAL ONE (16:42)
[2018-06-30] MEDS ORDERED: *HR* Promethazine 25 MG/ML VIAL IVP ONE (16:45)
--- NOTE | 2018-06-30 17:58 | Pre-Sedation Evaluation ---
Pre-sedation evaluation - Pre-sedation checklist Date of procedure: 06/30/18 Procedure: EGD Recent Vitals: Last Vital Signs Temp 98.0 F 06/30/18 16:00 Pulse 72 06/30/18 17:55 Resp 16 06/30/18 17:55 BP 136/80 06/30/18 17:55 Pulse Ox 100 06/30/18 17:55 H&P (including ROS) documented in medical record: Yes Previous reaction to sedatives/anesthetics: No Dietary Status: NPO after Midnight Dentition: full dentition ASA Classification *see protocol: CLASS III-Severe systemic disease Plan of Care: Pt appropriate candidate for procedure/moderate/conscious sedation , Risks/benefits of procedure/sedation discussed w/ patient/family Cardiac Registry (Cardio Only) - Functional Capacity - Clincal Frailty Scale
[2018-06-30 19:28] LABS: Hematocrit 28.6 % (35.3-44.9); Hemoglobin 9.4 g/dL (11.5-15.4)
[2018-07-01] MEDS: Ringers Solution, Lactated 1,000 ML IVC SCH ×3 (00:14→19:03)
[2018-07-01] MEDS: Pantoprazole 40 MG in 0.9 % Sodium Chloride Mini Bag 100 ML IVC SCH ×5 (00:14→21:27)
[2018-07-01 01:04] LABS: Hematocrit 26.5 % (35.3-44.9); Hemoglobin 8.3 g/dL (11.5-15.4)
[2018-07-01 06:19] LABS: Basophils # 0.1 K/mcL (0.0-0.2); Basophils % 0.6 %; Eosinophils # 0.3 K/mcL (0.0-0.6); Eosinophils % 2.2 %; Hematocrit 28.1 % (35.3-44.9); Hemoglobin 8.6 g/dL (11.5-15.4); Immature Granulocytes % 0.6 % (0-4); Lymphocytes # 2.3 K/mcL (0.6-4.6); Lymphocytes % 16.6 %; Mean Corpuscular HGB Conc 30.6 g/dL (31.6-35.5); Mean Corpuscular Volume 94.6 fL (83.0-100.0); Mean Platelet Volume 9.2 fL (9.4-12.4); Monocytes # 0.9 K/mcL (0.0-1.3); Monocytes % 6.7 %; Platelet Count 252 K/mcL (140-400); Red Blood Count 2.97 M/mcL (3.82-4.97); Red Cell Distribution Width 16.7 % (11.5-14.5); Segmented Neutrophils % 73.3 %
[2018-07-01 06:44] LABS: BUN/Creatinine Ratio 35 (6-26); Blood Urea Nitrogen 18 mg/dL (8-23); Calcium 8.6 mg/dL (8.6-10.3); Carbon Dioxide 20 mEq/L (23-29); Chloride 112 mEq/L (98-107); Glucose 55 mg/dL (70-105); Osmolality,Calculated 291 (280-300); Potassium 3.5 mEq/L (3.5-5.1); Sodium 141 mEq/L (136-145); eGFR For Non-African Americans > 60 (> 60)
[2018-07-01 06:54] LABS: Neutrophils # 10.3 K/mcL (1.6-8.9)
--- NOTE | 2018-07-01 08:43 | General Surgery Progress Note ---
Date of Encounter: 07/01/18 Time of Encounter: 08:41 - Assessment and Plan (1) GERD (gastroesophageal reflux disease) Current Visit: No Status: Chronic continue PPI Qualifiers: Esophagitis presence: esophagitis presence not specified Qualified Code(s) : K21.9 - Gastro-esophageal reflux disease without esophagitis (2) Acute blood loss anemia Current Visit: Yes Status: Acute Hb stable (3) Gastric ulcer Current Visit: Yes Status: Chronic patient with large posterior body gastric ulcer biopsies pending H pylori pending continue PPI and carafate even upon DC I will see patient as outpatient in 3-4 weeks to discuss repeat EGD to evaluate for resolution clears today Qualifiers: Gastric ulcer chronicity: chronic Gastric ulcer complication status: with hemorrhage Qualified Code(s): K25.4 - Chronic or unspecified gastric ulcer with hemorrhage Subjective Patient reports: no new complaints, feels better, voiding w/o difficulty Objective Vital Signs - Last 8 Hours Temp Pulse Resp BP Pulse Ox 07/01/18 07:42 97.9 F 07/01/18 03:40 98 F 86 20 155/92 100 Intake and Output 06/30/18 07/01/18 07/01/18 23:59 07:59 15:59 Intake Total 1100 / 1100 1200 / 1200 Output Total 600 / 600 500 / 500 Balance 500 / 500 700 / 700 Intake: IV Fluids 1100 / 1100 1200 / 1200 Protonix 40 MG In 0.9 % Sodium 100 / 100 200 / 200 Chloride (Mini-Bag +) 100 ML @ 20 mls/hr IVC .Q5H JERE Rx#: [id number] Lactated Ringers 1,000 ML @ 125 1000 / 1000 1000 / 1000 mls/hr IVC .Q8H JERE Rx#: [id number] Oral 0 / 0 Output: Urine 600 / 600 500 / 500 Other: # Voids 1 2 # Bowel Movements 0 - General physical appearance well developed, well nourished, no distress - Eyes PERRL, normal ocular movement - ENT normal mucosa, normocephalic - Neck Neck exam: trachea midline - Respiratory normal expansion, normal respiratory effort - Cardiovascular Cardiovascular exam: Present: RRR - Abdomen Abdomen: Present: bowel sounds present, soft, non tender. Absent: distended - Integumentary no rash, no growths - Neurologic CN 2-12 grossly intact - Musculoskeletal normal posture - Psychiatric oriented to time, oriented to person, oriented to place, speech is normal, memory intact - Labs 07/01/18 05:52 07/01/18 05:52 Diabetes panel 07/01/18 Range/Units 05:52 Sodium 141 (136-145) mEq/L Potassium 3.5 (3.5-5.1) mEq/L Chloride 112 H (98-107) mEq/L Carbon Dioxide 20 L (23-29) mEq/L BUN 18 (8-23) mg/dL Creatinine 0.52 L (0.60-1.20) mg/dL Glucose 55 L (70-105) mg/dL Calcium 8.6 (8.6-10.3) mg/dL Calcium panel 07/01/18 Range/Units 05:52 Calcium 8.6 (8.6-10.3) mg/dL Pituitary panel 07/01/18 Range/Units 05:52 Sodium 141 (136-145) mEq/L Potassium 3.5 (3.5-5.1) mEq/L Chloride 112 H (98-107) mEq/L Carbon Dioxide 20 L (23-29) mEq/L BUN 18 (8-23) mg/dL Creatinine 0.52 L (0.60-1.20) mg/dL Glucose 55 L (70-105) mg/dL Calcium 8.6 (8.6-10.3) mg/dL Adrenal panel 07/01/18 Range/Units 05:52 Sodium 141 (136-145) mEq/L Potassium 3.5 (3.5-5.1) mEq/L Chloride 112 H (98-107) mEq/L Carbon Dioxide 20 L (23-29) mEq/L BUN 18 (8-23) mg/dL Creatinine 0.52 L (0.60-1.20) mg/dL Glucose 55 L (70-105) mg/dL Calcium 8.6 (8.6-10.3) mg/dL Consult Discharge Plan - Plan Referrals: Marilin Deal CNP [Primary Care Provider] - Isabella Nation MD [Partnered Physician] - (3-4 weeks discuss repeat EGD)
[2018-07-01] MEDS: Cholecalciferol (D-3) 1,000 UNIT TABLET PO SCH (08:45)
[2018-07-01] MEDS: Folic Acid 1 MG TABLET PO SCH (08:45)
[2018-07-01] MEDS: Sucralfate 1 GM TABLET PO SCH ×4 (08:45→21:26)
--- NOTE | 2018-07-01 12:05 | Electrocardiograph Report ---
[address] [place] [address] Test Date: 2018-06-29 Pat Name: Queenie Gil Department: EXAM9 Room: 06 Gender: F Nib Finisher: : 1960 Requested By: Alverto Rojo Order Number: [id number] Reading MD: Alisa Jefferson Measurements Intervals [place] Rate: 66 P: 50 MA: 169 QRS: 60 QRSD: 95 T: 72 QT: 420 QTc: 440 Interpretive Statements Normal sinus rhythm Electronically Signed On 07-01-2018 12:03:19 EDT by Alisa Jefferson
--- NOTE | 2018-07-01 15:49 | Internal Med Progress Note ---
<Matilda Santos - Last Filed: 07/01/18 16:26> Hospitalist Progress Note - Encounter Date of Encounter: 07/01/18 - Exam Vitals: Temp Pulse Resp BP Pulse Ox 98.2 F 80 18 126/82 94 07/01/18 12:56 07/01/18 12:56 07/01/18 12:56 07/01/18 12:56 07/01/18 12:56 - Assessment and Plan (1) Hematemesis Current Visit: Yes Status: Acute (2) Hemoglobin decreased Current Visit: Yes Status: Acute (3) Increased white blood cell count Current Visit: Yes Status: Acute (4) Hypotension Current Visit: Yes Status: Resolved - Time Spent with Patient Total time spent is greater than 50% in coordination of care (as documented) at patient's floor/unit and/or counseling patient: Internal Medicine: Result - Labs CBC & Chem 7: 07/01/18 05:52 07/01/18 05:52 Labs: Short CBC 06/30/18 07/01/18 07/01/18 Range/Units 18:30 00:48 05:52 WBC 14.0 H (4.3-11.1) K/mcL Hgb 9.4 L 8.3 L 8.6 L (11.5-15.4) g/dL Hct 28.6 L 26.5 L 28.1 L (35.3-44.9) % Plt Count 252 (140-400) K/mcL Neutrophils # 10.3 H (1.6-8.9) K/mcL BMP 07/01/18 05:52 Sodium 141 Potassium 3.5 Chloride 112 H Carbon Dioxide 20 L BUN 18 Creatinine 0.52 L Glucose 55 L Calcium 8.6 - ABG Interpretation ABG results: PT/INR, D-dimer PT 11.2 Seconds (9.4-12.1) 06/29/18 10:16 Consult Discharge Plan - Plan Referrals: Marilin Deal CNP [Primary Care Provider] - Isabella Nation MD [Partnered Physician] - (3-4 weeks discuss repeat EGD) - Attending Attestation I examined this patient and my medical decision-making was reviewed with the Resident Physician Dr Alejandro. I agree with the documented findings, disposition and treatment plan as described except to the extent set forth below. Ms Gil was admitted with emesis with dark red clots x multiple episodes starting yesterday. Recently treated for pna with abx and steroids (completed) course. Otherwise in usual state of health. Hx gastric ulcers with recent cessation of home PPI and confirmed ulcers on egd here. Awake, no abd pain, nausea, emesis, bloody emesis. Tolerating liquid diet without difficulty. Dnies sob, wheezing. cough remains improved from prior. No fevers or chills. Denies melena gen- alert, awake,appears stated age eyes- pupils equal round, no conjunctival pallor cv- reg rate and rhythm, normal s1,s2, no murmurs appreciated, no le edema lungs- ctabl, no wheezing, rhonchi or crackles, normal resp effort on o2 nc abd- soft, non tender, non distended, decreased bs, no guarding skin- warm dry no pallor neuro- AAOx3 Upper GIB with emesis with red blood, now resolved, 2/2 Duodenitis and Gastric Ulcer Hx gastric ulcer with cessation of PPI last month EGD with duodenitis and non bleeding gastric ulcer with bxs taken -surg followed and rec for PPI BID, carafate QID 1 month, fu outpt with Dr Nation in 3-4 weeks Acute Anemia 2/2 gib - serial h/hs, transfuse for hgb <7 or active bleeding, holding home asa/plavix as per surg given risk v benefit and scds ordered -awaiting hgb stability, if confirmed in next 24 hrs will be stable to dc to home with asa and plavix cont to be held until follow up Leukocytosis 23 on admit, likely combination of reactive and recent steroid use , repeats stable in 14s, afebrile -CXR RLL opacity, confirmed recent pna and completion of abx course, ua ordered but never collected, pt denies any symptoms this admission, bl cxs ngtd -given her recent pna, would not expect clear cxr at this time, overall symptoms are greatly improved from when she initiated treatment outpt -fu with pcp outpt for repeat CXR in upcoming weeks CAD with stents x2 in 2013, stable, - holding asa + plavix as above, drew in setting of no new stents, held anti hypertensives given low bps on admit in setting of gib, d/w patient risk vs benefit of asa/plavix at this time, fu with surgery in 3-4 weeks and may be able to resume at that time pending re eval HTN- bps normotensive now to mildly elevated, cont to hold imdur and losartan, will add back BB and arb and imdur as bp permits <Jessica Alejandro - Last Filed: 07/01/18 19:00> Hospitalist Progress Note - Encounter Date of Encounter: 07/01/18 Time of Encounter: 10:04 - Subjective Interval History: Queenie Gil is a 58 YOF with a history of gastric ulcers and recent non- compliance with her PPI over the past month. She recently completed a course of abx and steroids for PNA. She presented to the ED d/t multiple episodes of hematemesis and progressive generalized weakness over the past 2.5 weeks. Was found to have a hbg of 7.3 in the ED and was given 2 units of PRBCs and 1 unit of platelets, hgb now 8.6, plt 252. Patient was started on protonix drip, IVF, and made NPO. She was also hypotensive with a BP of 70/56 on presentation and has improved to 155/92 s/p 3.5L IVF. EGD showed non-bleeding duodenitis with large posterior body gastric ulcer. Patient is feeling much better today. No new episodes of hematemesis. Tolerating clear diet this morning. Vitals stable. Admits to a mild NATH for the past several days. Denies CP, SOB, lightheadedness, dizziness. - Exam Vitals: Temp Pulse Resp BP Pulse Ox 98.2 F 80 18 126/82 94 07/01/18 12:56 07/01/18 12:56 07/01/18 12:56 07/01/18 12:56 07/01/18 12:56 Exam: Gen: Lying comfortably in bed. NAD. Cardio: RRR, normal S1 and S2, no murmurs Resp: CTAB, no wheezing, normal respiratory effort Abd: Soft, non-tender, BSx4 Ext: No LE edema. No cyanosis. Neuro: no focal neurological deficits. Skin: warm and dry, no lesions noted. - Assessment and Plan (1) Upper GI bleed Current Visit: Yes Status: Acute Assessment and Plan: Secondary to duodenitis and gastric ulcer Reported history of gastric ulcer with cessation of PPI in past month Recently on steroids and abx for treatment of PNA EDG 10/ - large non-bleeding posterior gastric ulcer, duodenitis Continue PPI drip Continue carafate QID x 1 month per surgery recs F/u with Dr Nation in 3-4 weeks as outpatient Will recheck H/H in the AM (2) Acute blood loss anemia Current Visit: Yes Status: Acute Assessment and Plan: Secondary to UGIB hgb of 7.3 at presentation, 8.6 s/p 2u PRBCs Transfuse for hgb <7 or active bleeding Continue to hold home ASA and Plavix per surgery recs until follow-up outpatient in 3-4 weeks Will recheck hgb in the AM. If stable patient will likely go home tomorrow. (3) History of gastric ulcer Current Visit: Yes Status: Acute Assessment and Plan: Was put on PPI in aug 2017, but stopped taking 1 month ago d/t reading about SEs (4) Increased white blood cell count Current Visit: Yes Status: Acute Assessment and Plan: WBC 23 on admission likely secondary to UGIB and recent steroids WBC 14 today, significantly improved CXR - RLL opacity, confirmed recent PNA Blood Cx pending UA not collected Patient much improved from when she initiated abx and steroids Recommend outpatient follow with PCP for resolution of PNA on CXR Will continue to monitor (5) GERD (gastroesophageal reflux disease) Current Visit: No Status: Chronic Assessment and Plan: Chronic. Discontinued her PPI. Continue PPI drip in the setting of UGIB Patient agreeable to restart PPI on discharge Discussed risks and benefits of therapy (6) CAD (coronary artery disease) Current Visit: No Status: Chronic Assessment and Plan: History of stents x2 in 2013 Continue to hold ASA/Plavix in setting of UGIB, follow up with surgery in 3-4 weeks to discuss resuming Holding antihypertensives d/t low BP on presentation and UGIB (7) HTN (hypertension) Current Visit: No Status: Chronic Assessment and Plan: Chronic, stable Hypotensive on presentation in the setting of UGIB Currently 155/92 Continue to hold metoprolol, imdur and losartan, will resume as BP tolerates (8) Hyperlipidemia Current Visit: No Status: Chronic Assessment and Plan: Chronic, stable. Continue home statin DVT Prophylaxis: Pt using SCDs currently due to UGIB - Time Spent with Patient Total time spent is greater than 50% in coordination of care (as documented) at patient's floor/unit and/or counseling patient: 25 - 35 minutes Internal Medicine: Result - Labs CBC & Chem 7: 07/01/18 16:46 07/01/18 05:52 Labs: Short CBC 06/30/18 07/01/18 07/01/18 Range/Units 18:30 00:48 05:52 WBC 14.0 H (4.3-11.1) K/mcL Hgb 9.4 L 8.3 L 8.6 L (11.5-15.4) g/dL Hct 28.6 L 26.5 L 28.1 L (35.3-44.9) % Plt Count 252 (140-400) K/mcL Neutrophils # 10.3 H (1.6-8.9) K/mcL BMP 07/01/18 05:52 Sodium 141 Potassium 3.5 Chloride 112 H Carbon Dioxide 20 L BUN 18 Creatinine 0.52 L Glucose 55 L Calcium 8.6 - ABG Interpretation ABG results: PT/INR, D-dimer PT 11.2 Seconds (9.4-12.1) 06/29/18 10:16 <Matilda Santos - Last Filed: 07/01/18 16:26> (1) Hematemesis Qualifiers: Nausea presence: with nausea Qualified Code(s): K92.0 - Hematemesis (3) Increased white blood cell count Qualifiers: Leukocytosis type: unspecified Qualified Code(s): D72.829 - Elevated white blood cell count, unspecified (4) Hypotension Qualifiers: Hypotension type: unspecified hypotension type Qualified Code(s): I95.9 - Hypotension, unspecified <Basil,Jessica C - Last Filed: 07/01/18 19:00> (4) Increased white blood cell count Qualifiers: Leukocytosis type: unspecified Qualified Code(s): D72.829 - Elevated white blood cell count, unspecified (5) GERD (gastroesophageal reflux disease) Qualifiers: Esophagitis presence: esophagitis presence not specified Qualified Code(s): K21.9 - Gastro-esophageal reflux disease without esophagitis (6) CAD (coronary artery disease) Qualifiers: Coronary Disease-Associated Artery/Lesion type: [place] artery [place] vs. transplanted heart: [place] heart Associated angina: angina presence unspecified Qualified Code(s): I25.10 - Atherosclerotic heart disease of [place] coronary artery without angina pectoris (7) HTN (hypertension) Qualifiers: Hypertension type: essential hypertension Qualified Code(s): I10 - Essential (primary) hypertension (8) Hyperlipidemia Qualifiers: Hyperlipidemia type: pure hypercholesterolemia Qualified Code(s): E78.00 - Pure hypercholesterolemia, unspecified; E78.0 - Pure hypercholesterolemia
[2018-07-01 17:09] LABS: Hematocrit 25.7 % (35.3-44.9); Hemoglobin 8.2 g/dL (11.5-15.4)
[2018-07-02] MEDS: Pantoprazole 40 MG in 0.9 % Sodium Chloride Mini Bag 100 ML IVC SCH ×3 (02:36→13:20)
[2018-07-02] MEDS: Ringers Solution, Lactated 1,000 ML IVC SCH (03:39)
[2018-07-02 05:47] LABS: Basophils # 0.1 K/mcL (0.0-0.2); Basophils % 0.7 %; Eosinophils # 0.4 K/mcL (0.0-0.6); Eosinophils % 5.3 %; Hematocrit 24.2 % (35.3-44.9); Hemoglobin 7.8 g/dL (11.5-15.4); Immature Granulocytes % 0.5 % (0-4); Lymphocytes % 24.5 %; Mean Corpuscular HGB Conc 32.2 g/dL (31.6-35.5); Mean Corpuscular Hemoglobin 29.2 pg (28.0-33.3); Mean Corpuscular Volume 90.6 fL (83.0-100.0); Mean Platelet Volume 9.2 fL (9.4-12.4); Monocytes # 0.7 K/mcL (0.0-1.3); Monocytes % 8.4 %; Neutrophils # 4.9 K/mcL (1.6-8.9); Platelet Count 316 K/mcL (140-400); Red Blood Count 2.67 M/mcL (3.82-4.97); Red Cell Distribution Width 16.6 % (11.5-14.5); Segmented Neutrophils % 60.6 %
[2018-07-02 06:01] LABS: BUN/Creatinine Ratio 13 (6-26); Blood Urea Nitrogen 8 mg/dL (8-23); Calcium 8.7 mg/dL (8.6-10.3); Carbon Dioxide 29 mEq/L (23-29); Chloride 109 mEq/L (98-107); Glucose 78 mg/dL (70-105); Osmolality,Calculated 297 (280-300); Potassium 3.2 mEq/L (3.5-5.1); Sodium 145 mEq/L (136-145); eGFR For Non-African Americans > 60 (> 60)
[2018-07-02] MEDS: Sucralfate 1 GM TABLET PO SCH ×3 (06:22→15:48)
[2018-07-02] MEDS: Cholecalciferol (D-3) 1,000 UNIT TABLET PO SCH (09:56)
[2018-07-02] MEDS: Folic Acid 1 MG TABLET PO SCH (09:56)
[2018-07-02 14:02] LABS: Hemoglobin 8.5 g/dL (11.5-15.4)
[2018-07-02] MEDS ORDERED: *HR* Methotrexate 2.5 MG TABLET PO SCH (14:28)
--- NOTE | 2018-07-02 14:34 | Internal Med Progress Note ---
Hospitalist Progress Note - Encounter Date of Encounter: 07/02/18 - Subjective Interval History: Queenie Gil is a 58 YOF with a history of gastric ulcers and recent non- compliance with her PPI over the past month. She recently completed a course of abx and steroids for PNA. She presented to the ED d/t multiple episodes of hematemesis and progressive generalized weakness over the past 2.5 weeks. Was found to have a hbg of 7.3 in the ED and was given 2 units of PRBCs and 1 unit of platelets, hgb now 8.6, plt 252. Patient was started on protonix drip, IVF, and made NPO. She was also hypotensive with a BP of 70/56 on presentation and has improved to 155/92 s/p 3.5L IVF. EGD showed non-bleeding duodenitis with large posterior body gastric ulcer. Patient is feeling much better today. No new episodes of hematemesis. Tolerating clear diet this morning. Vitals stable. Admits to a mild NATH for the past several days. Denies CP, SOB, lightheadedness, dizziness. - Exam Vitals: Temp Pulse Resp BP Pulse Ox 98.2 F 78 15 144/79 97 07/02/18 11:24 07/02/18 11:24 07/02/18 11:24 07/02/18 11:24 07/02/18 11:24 - Assessment and Plan (1) Upper GI bleed Current Visit: Yes Status: Acute (2) Acute blood loss anemia Current Visit: Yes Status: Acute (3) History of gastric ulcer Current Visit: Yes Status: Acute (4) Increased white blood cell count Current Visit: Yes Status: Acute (5) GERD (gastroesophageal reflux disease) Current Visit: No Status: Chronic (6) CAD (coronary artery disease) Current Visit: No Status: Chronic (7) HTN (hypertension) Current Visit: No Status: Chronic (8) Hyperlipidemia Current Visit: No Status: Chronic - Time Spent with Patient Total time spent is greater than 50% in coordination of care (as documented) at patient's floor/unit and/or counseling patient: Internal Medicine: Result - Labs CBC & Chem 7: 07/02/18 13:36 07/02/18 05:00 Labs: Short CBC 07/01/18 07/02/18 07/02/18 Range/Units 16:46 05:00 13:36 WBC 8.1 (4.3-11.1) K/mcL Hgb 8.2 L 7.8 L 8.5 L (11.5-15.4) g/dL Hct 25.7 L 24.2 L 27.0 L (35.3-44.9) % Plt Count 316 (140-400) K/mcL Neutrophils # 4.9 (1.6-8.9) K/mcL BMP 07/02/18 05:00 Sodium 145 Potassium 3.2 L Chloride 109 H Carbon Dioxide 29 BUN 8 Creatinine 0.63 Glucose 78 Calcium 8.7 - ABG Interpretation ABG results: PT/INR, D-dimer PT 11.2 Seconds (9.4-12.1) 06/29/18 10:16 - VTE Documentation of Mechanical Device: Intermittent pneumatic compression device Consult Discharge Plan - Plan Referrals: Marilin Deal CNP [Primary Care Provider] - 07/07/18 11:00 am Isabella Nation MD [Partnered Physician] - (3-4 weeks discuss repeat EGD) (4) Increased white blood cell count Qualifiers: Leukocytosis type: unspecified Qualified Code(s): D72.829 - Elevated white blood cell count, unspecified (5) GERD (gastroesophageal reflux disease) Qualifiers: Esophagitis presence: esophagitis presence not specified Qualified Code(s): K21.9 - Gastro-esophageal reflux disease without esophagitis (6) CAD (coronary artery disease) Qualifiers: Coronary Disease-Associated Artery/Lesion type: [place] artery [place] vs. transplanted heart: [place] heart Associated angina: angina presence unspecified Qualified Code(s): I25.10 - Atherosclerotic heart disease of [place] coronary artery without angina pectoris (7) HTN (hypertension) Qualifiers: Hypertension type: essential hypertension Qualified Code(s): I10 - Essential (primary) hypertension (8) Hyperlipidemia Qualifiers: Hyperlipidemia type: pure hypercholesterolemia Qualified Code(s): E78.00 - Pure hypercholesterolemia, unspecified; E78.0 - Pure hypercholesterolemia
[2018-07-02 15:18] VITALS: BP 123/65
--- NOTE | 2018-07-02 16:13 | Discharge Summary ---
<Matilda Santos - Last Filed: 07/02/18 16:55> Orders not resulted at time of discharge: Pending orders 06/30/18 18:02 Surgical Pathology [PTH] Routine Date of Encounter: 07/02/18 - Discharge Diagnosis (1) Hematemesis Status: Acute Qualifiers: Nausea presence: with nausea Qualified Code(s): K92.0 - Hematemesis (2) Hemoglobin decreased Status: Acute (3) Increased white blood cell count Status: Acute Qualifiers: Leukocytosis type: unspecified Qualified Code(s): D72.829 - Elevated white blood cell count, unspecified (4) Hypotension Status: Resolved Qualifiers: Hypotension type: unspecified hypotension type Qualified Code(s): I95.9 - Hypotension, unspecified Hospital course: Ms. Gil is a 58 year old female - Time Spent with Patient Total time spent providing and/or coordinating discharge services: - Discharge Medications Prescriptions: Omeprazole [PriLOSEC] 40 mg PO BID #60 cap Sucralfate [Carafate] 1 gm PO QIDAC #120 tablet Home Medications: Cholecalciferol (D-3) [Vitamin D] 1,000 unit PO DAILY 09/01/16 [History] Folic Acid 1 mg PO DAILY 09/26/17 [History] Hydroxychloroquine [Plaquenuil] 300 mg PO DAILY 09/26/17 [History] Methotrexate [Otrexup] 15 mg PO FR 09/27/17 [History] Ferrous Sulfate 325 mg PO DAILY #30 tablet 09/29/17 [Rx] Atorvastatin Calcium 80 mg PO DAILY 06/29/18 [History] HYDROcodone/Acet 5/325 mg [[place] 5-325 mg] 1 tab PO BID PRN 06/29/18 [History] Levothyroxine Sodium [Levoxyl] 50 mcg PO QAM 06/29/18 [History] Metoprolol [Lopressor] 12.5 mg PO BID 06/29/18 [History] Omeprazole [PriLOSEC] 40 mg PO BID #60 cap 07/02/18 [Rx] Sucralfate [Carafate] 1 gm PO QIDAC #120 tablet 07/02/18 [Rx] Allergies/Adverse Reactions: 3 Allergy/AdvReac Type Severity Reaction Status Date / Time codeine Allergy Hives Verified 06/29/18 09:59 lisinopril AdvReac Cough Verified 06/29/18 09:59 Date of admission: 06/29/18 14:48 Primary care physician: Marilin Deal CNP Consults: 06/29/18 22:14 Consult to Furniture Builder [CONS] Routine Reason for SW Consult: financial concerns - Constitutional Vitals: Temp Pulse Resp BP Pulse Ox 97.9 F 70 16 123/65 96 07/02/18 15:17 07/02/18 15:17 07/02/18 15:17 07/02/18 15:17 07/02/18 15:17 - Patient Status Disposition: Home, Self-Care Condition: Good - Discharge Instructions Instructions: Sucralfate (By mouth), Omeprazole (By mouth), Gastrointestinal Bleeding (DC) Follow Up With: Marilin Deal CNP [Primary Care Provider] - 07/07/18 11:00 am Isabella Nation MD [Partnered Physician] - 07/22/18 8:55 am (3-4 weeks discuss repeat EGD) - Attending Attestation I examined this patient and my medical decision-making was reviewed with the Resident Physician Dr Alejandro. I agree with the documented findings, disposition and treatment plan as described except to the extent set forth below. Ms Gil was admitted with emesis with dark red clots. Recently treated for pna with abx and steroids (completed) course. Otherwise in usual state of health. Hx gastric ulcers with recent cessation of home PPI and confirmed ulcers on egd here. Her hgb has now remained stable off of aspirin and plavix. She was followed by surgery whom will see her outpt and is dc to home in stable condition. Awake, no abd pain, nausea, emesis, bloody emesis. Tolerating diet without any incident. Had one melanotic bm today and as d/w Surgery team, anticipated. She denies any presyncope, syncope, sob or fatigue, no cp or palpitations. She is happy to dc to home today. gen- alert, awake,appears stated age eyes- pupils equal round, no conjunctival pallor cv- reg rate and rhythm, normal s1,s2, no murmurs appreciated, no le edema lungs- ctabl, no wheezing, rhonchi or crackles, normal resp effort on room air abd- soft, non tender, non distended, + bs, no guarding skin- warm dry no pallor neuro- AAOx3 Upper GIB with emesis with red blood, now resolved, 2/2 Duodenitis and Gastric Ulcer Hx gastric ulcer with cessation of PPI last month EGD with duodenitis and non bleeding gastric ulcer with bxs taken -surg followed and rec for PPI BID (resident contacted pt pharmacy at discharge to update that dosing is bid ), carafate QID 1 month, fu outpt with Dr Nation in 3-4 weeks, hold asa/plavix Acute Anemia 2/2 gib - serial h/hs, holding home asa/plavix as per surg given risk v benefit (scds while inpt) -hgb now stable, asa and plavix cont to be held until follow up, repeat hgb with pcp within 5 days Leukocytosis 23 on admit, likely combination of reactive and recent steroid use , now resolved, afebrile throughout admit and improved without any abx -CXR RLL opacity, confirmed recent pna and completion of abx course, ua ordered but never collected, pt denies any symptoms this admission, bl cxs ngtd -given her recent pna, would not expect clear cxr at this time, overall symptoms are greatly improved from when she initiated treatment outpt -fu with pcp outpt for repeat CXR in upcoming weeks CAD with stents x2 in 2013, stable, - holding asa + plavix as above, drew in setting of no new stents, held anti hypertensives given low bps on admit in setting of gib, d/w patient risk vs benefit of asa/plavix at this time, fu with surgery in 3-4 weeks and may be able to resume at that time pending re eval HTN- bps normotensive now to mildly elevated, cont to hold imdur and losartan, add back BB and arb and imdur as bp permits outpt in fu with pcp within one week <Jessica Alejandro - Last Filed: 07/02/18 19:21> - NOTES TO OUTPATIENT PROVIDER Notes to Outpatient Provider: Follow up with general surgery in 3-4 weeks, continue PPI and Carafate, hold aspirin and plavix until follow up. Follow up with PCP withint 1 week, recheck hemoglobin. Resumed Metoprolol and Imdur on discharge, but held losartan due to BP being low during hospitalization, may resume if appropriate on follow-up. Orders not resulted at time of discharge: Pending orders 06/30/18 18:02 Surgical Pathology [PTH] Routine Date of Encounter: 07/02/18 Time of Encounter: 02:17 - Discharge Diagnosis (1) Upper GI bleed Priority: Primary Status: Acute (2) Acute blood loss anemia Priority: Secondary Status: Acute (3) History of gastric ulcer Priority: Secondary Status: Acute (4) Increased white blood cell count Priority: Secondary Status: Acute Qualifiers: Leukocytosis type: unspecified Qualified Code(s): D72.829 - Elevated white blood cell count, unspecified (5) GERD (gastroesophageal reflux disease) Priority: Secondary Status: Chronic Qualifiers: Esophagitis presence: esophagitis presence not specified Qualified Code(s) : K21.9 - Gastro-esophageal reflux disease without esophagitis (6) CAD (coronary artery disease) Priority: Secondary Status: Chronic Qualifiers: Coronary Disease-Associated Artery/Lesion type: [place] artery [place] vs. transplanted heart: [place] heart Associated angina: angina presence unspecified Qualified Code(s): I25.10 - Atherosclerotic heart disease of [place] coronary artery without angina pectoris (7) HTN (hypertension) Priority: Secondary Status: Chronic Qualifiers: Hypertension type: essential hypertension Qualified Code(s): I10 - Essential (primary) hypertension (8) Hyperlipidemia Priority: Secondary Status: Chronic Qualifiers: Hyperlipidemia type: pure hypercholesterolemia Qualified Code(s): E78.00 - Pure hypercholesterolemia, unspecified; E78.0 - Pure hypercholesterolemia Hospital course: Queenie Gil is a 58 YOF with a history of gastric ulcers and recent non- compliance with her PPI over the past month. She recently completed a course of abx and steroids for PNA. She presented to the ED d/t multiple episodes of hematemesis and progressive generalized weakness over the past 2.5 weeks. Was found to have a hbg of 7.3 in the ED and was given 2 units of PRBCs and 1 unit of platelets, hgb now 8.5, plt 316. Patient was started on protonix drip, IVF, and made NPO. She was also hypotensive with a BP of 70/56 on presentation and BP stablized s/p 3.5L IVFs. EGD was completed and showed non-bleeding duodenitis with large posterior body gastric ulcer. Aspirin and Plavix is being held until follow-up with Dr. Nation due to bleeding risks, patient aware of risks. Patient was continued on carafate and Omeperazole on discharge. Due to patients blood pressure running low during her hospitalization, she was discharged on her home Metoprolol but held her Losartan and Imdur with outpatient follow-up with PCP within 1 week. Hemoglobin should be rechecked during PCP follow-up. Patient was discharged in stable condition and scheduled to follow up with Dr. Nation in 3-4 weeks. Discharge discussed with: patient - Time Spent with Patient Total time spent providing and/or coordinating discharge services: Date of admission: 06/29/18 14:48 Primary care physician: Marilin Deal CNP Consults: 06/29/18 22:14 Consult to Furniture Builder [CONS] Routine Reason for SW Consult: financial concerns - Constitutional Vitals: Temp Pulse Resp BP Pulse Ox 97.9 F 70 16 123/65 96 07/02/18 15:17 07/02/18 15:17 07/02/18 15:17 07/02/18 15:17 07/02/18 15:17 Exam: Gen: Lying comfortably in bed. NAD. Cardio: RRR, normal S1 and S2, no murmurs Resp: CTAB, no wheezing, normal respiratory effort Abd: Soft, non-tender Ext: No LE edema. No cyanosis. Neuro: no focal neurological deficits. Skin: warm and dry, no lesions noted. - Patient Status Functional capacity at discharge: independent ambulation Overall status at discharge: patient is progressing back to baseline - Diet and Activity Activity: increase activity as tolerated Diet: low salt diet - VTE Documentation of Mechanical Device: Intermittent pneumatic compression device
== END 2018-07-02 17:54 | disposition home or self-care (01) | DRG 378 ==
LOC: EMEROOARM 09:47 → 3BNU 09:47 → SUATTDRO 14:48 → ICNU 15:51 → 3BNU 07-01 12:47
PROVIDERS: ADMIT Internal Medicine; ATTEND Internal Medicine
PROC: ENDOEBX (2018-06-30 17:30)